=== PATIENT | male | born 1945 | race Caucasian/White ===

== ENCOUNTER 2017-11-02 09:00 | Outpatient (RCR) | payer MEDICARE, SELFPAY ==
--- NOTE | 2017-10-25 17:22 | HP.PTEVAL_ITS ---
Patient's Visit Information MITZI CLIFFORD is a 71 year old M referred to Physical Therapy by Phuong Tena MD with a diagnosis of Lumbosacaral spondylosis with radiculopathy. Date of Evaluation: 10/23/17 Physical Therapist: Shashank Prince - Visit Plan Frequency: 2x /Week Duration: 4 Weeks Plan: Start with neutral spine core strengtheing, light flexion exercises, postural awarness education, lifting/body mechanics, HS stretching and may use modalities to reduce symptoms. - Subjective Subjective: Pt is here today for his initial evaluation with diagnosis of lumbosacaral spondylosis with radiculopathy down his RLE. Pt. is a plesant 71 y.o. male who reports having a history of LBP for 10+ years, but would usually go away with rest and stretching. This time he bent over and lifted a heavy pumpkin and a large bin that was heavy resulting in radiating low back pain. Pt. reports having on and off radiding low back pain to the level of his lateral calf and ankle, not to his toes as of yet. He reports having increased pain with static standing, but also have pain with sitting for to long. He has relief with walking. He has no pain down his R leg. Pt. denies LE weakness, N/T and no changes in B/B. 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 He reports use of ice with decent relief. Pt. is scheduled to get an MRI next week. He reports light walking for his activity, but no recreational strengthening. He is hopeful to increase strength of his core, decrease pain in his back and increase overall tolerance to functional/recreational mobility. - Pain R hip Pain Intensity (Out of 10): 2 Pain Intensity Range: 1, 6 RLE Pain Intensity (Out of 10): 2 Pain Intensity Range: 1, 6 Lumbar spine Pain Intensity (Out of 10): 1 Pain Intensity Range: 1, 5 - Objective POSTURE: Pt. is over wt. Pt. has normal ARIANNA in stance. He has a anterior pelvic tilt in stance, with slight flexed posture. Pt. has rounded shoulders with FH positioning. PALPATION: Pt. has tenderness to spring testing of L3-S1 and increased pain with palpation to bilateral erector spinea. Pt. has no pain with palpation of bilateral hips or distal LEs. NEUROLOGICAL: Pt. has normal sensation to light and sharp touch of bilateral LEs. Pt. has 2+ achilles and patellar DTR bilaterally. Pt. is able to rise on heels and toes, but did show slight increased anterior tib weakness on R side. Normal G/S strength bilaterally. ROM: LUMBAR SPINE: flexion min loss mild increase NW, ext min loss NE, SB R min loss mild increase NW, SB L min/nil loss NE; rotation nil loss bilat mild increase NW bilaterally. Pt. has tight HS bilaterally 60deg/ea. Pt. has normal hip ROM, normal ER and IR without increase in symptoms. MMT: RLE - ankle 5/5 throughout, except 4+/5 DF; knee- 5/5 throughout; hip- flexion 4/5, abd 4/5, ext 4/5. LLE- ankle 5/5 throughout; knee- 5/5 throughout; hip- flexion 4+/5, abd 4/5, ext 4+/5. Core strength- poor+. GAIT: Pt. has normal step length bilaterally. Pt. has slight fwrd flexion with gait of trunk. Pt. has slight lateral hip sway, but no contralateral hip drop. STAIRS: PT. is able to negotiate with 2 HR (light use) without increase in symptoms. Pt. does have slight functional weakness with RLE controlled lowering. - Special Tests L/S Slump test left side: Negative L/S Slump test right side: Positive L/S Left Straight Leg Raise: Negative L/S Right Straight Leg Raise: Negative Lumbar Standing: Flexion - Mechanical Response: No effect Lumbar Standing: Flexion - Symptoms During Testing: Increases Lumbar Standing: Flexion - Symptoms After Testing: No worse Lumbar Standing: Extension - Mechanical Response: No effect Lumbar Standing: Extension - Symptoms During Testing: No effect Lumbar Standing: Extension - Symptoms After Testing: No effect Lumbar Standing: Right Side Glides - Mechanical Response: No effect Lumbar Standing: Right Side [place] - Symptoms During Testing: No effect Lumbar Standing: Right Side [place] - Symptoms After Testing: No effect Lumbar Standing: Left Side [place] - Mechanical Response: No effect Lumbar Standing: Left Side [place] - Symptoms During Testing: No effect Lumbar Standing: Left Side [place] - Symptoms After Testing: No effect Lumbar Lying: Flexion - Mechanical Response: No effect Lumbar Lying: Flexion - Symptoms During Testing: Decreases Lumbar Lying: Flexion - Symptoms After Testing: Better Lumbar Lying: Extension - Mechanical Response: No effect Lumbar Lying: Extension - Symptoms During Testing: Increases Lumbar Lying: Extension - Symptoms After Testing: Peripheralized Lumbar Static: Slouched Sit - Mechanical Response: No effect Lumbar Static: Slouched Sit - Symptoms During Testing: No effect Lumbar Static: Slouched Sit - Symptoms After Testing: No effect Lumbar Static: Sitting Erect - Mechanical Response: No effect Lumbar Static: Sitting Erect - Symptoms During Testing: No effect Lumbar Static: Sitting Erect - Symptoms After Testing: No effect Lumbar Static:Lying Prone in Extension - Mechanical Response: No effect Lumbar Static: Lying Prone in Extension - Sx During Testing: Increases Lumbar Static: Lying Prone in Extension - Sx After Testing: Peripheralized - Goals Goal 1:: Pt. to be I with HEP. Goal Time Frame: 4-6 Weeks Goal 2:: Pt. to have increased lumbar ROM by 25% in all directions without increase in pain. Goal Time Frame: 4-6 Weeks Goal 3:: Pt. to have increased core strength by 1/2 grade of all effected musculature to reduce stres applied to lumbar spine with all functional mobility. Goal Time Frame: 4-6 Weeks Goal 4:: Pt. to ambulate unlimited distances without increase in symptoms. Goal Time Frame: 4-6 Weeks Goal 5:: Pt. to sleep throughout the night without issues allowing for increased quality of life. Goal Time Frame: 4-6 Weeks - Rehabilitation Potential Physical Therapy Diagnosis: Pt. has signs and symptoms consistent with lumbar radiculopathy down his RLE He has dural signs, but not drastic changes as of yet. He. has signs suggesting spinal stenosis. He would benefit from PT to increase core strength, decreased pain, increase HS length and promote improved posture. Rehabilitation Potential: Fair - Anticipated Interventions Patient/Client Instruction: Educate patient on: Condition, Plan of Care, Risk Factors, Benefits of Fitness Program For the Purpose of:: To improve health and function, To foster healthy habits, To improve decision making, To facilitate caregiver knowledge, To improve self management, To prevent re-injury, To improve ability to perform tasks related to life management, To improve tolerance to ADL's Therapeutic Exercise to Include: Strength training, Power training, Body mechanics, Postural training, Flexibilty training, Passive ROM, Active ROM, Dynamic Lumbar Stabilization, Valentine Exercises For the Purpose of:: To decrease pain, To increase ROM, To improve nutrient delivery to tissue, To increase oxygenation perfusion, To improve muscle performance and motor function, To improve ability to perform ADL's, To increase tolerance to activity/condition/position, To improve health of tissue, To decrease soft tissue restriction, To increase flexibility/ROM Manual Therapy Techniques to Include: Mobilization, Passive ROM, Functional dry needling, Soft tissue mobilization For the Purpose of:: To decrease pain, To increase ROM, To improve nutrient delivery to tissue, To increase oxygenation perfusion, To improve muscle performance and motor function, To improve ability to perform ADL's Cryotherapy (ice pack, ice massage): Yes Ultrasound (thermal/non thermal): Yes For the Purpose of:: To decrease pain, To increase ROM Thank you for the opportunity to evaluate your patient. For Medicare and Medicare HMO plans, please review the plan of care and approve it. It will need to be FAXED BACK to us at [phone] for Medicare purposes. Please let me know if there are questions or concerns regarding this plan of care. Physician Signature: Date:
== END 2017-11-02 09:30 | disposition home or self-care (01) ==
LOC: PT 09:00
PROVIDERS: Family Provider Family Medicine; PCP Family Medicine; Visit Provider Orthopaedic Surgery Orthopaedic Surgery of the Spine
DX: M47.27 Other spondylosis with radiculopathy, lumbosacral region (principal)
CPT/HCPCS: 97110; 97162

== ENCOUNTER → 2019-04-03 16:51 | Outpatient (CLI) | payer MEDICARE, SELFPAY ==
[2019-04-03 17:50] LABS: Hemoglobin A1c 6.7 % (4.2-6.3)
== END ==
PROVIDERS: Family Provider Family Medicine; PCP Family Medicine; Referring Provider Orthopaedic Surgery Orthopaedic Surgery of the Spine; Visit Provider Orthopaedic Surgery Orthopaedic Surgery of the Spine
DX: E11.9 Type 2 diabetes mellitus without complications (principal); E55.9 Vitamin D deficiency, unspecified
CPT/HCPCS: 36415; 82040; 82306; 83036

== ENCOUNTER → 2021-08-26 13:45 | Outpatient (CLI) | payer MEDICARE, SELFPAY ==
[2021-08-26 14:43] LABS: Absolute Lymphocyte Count 1.55 X10^3/uL (0.83-4.51); Basophil# 0.03 X10^3/uL; Basophil% 0.5 % (0-1); Eosinophil# 0.06 X10^3/uL; Hemoglobin 14.7 g/dL (13.0-16.5); Lymphocyte # 1.55 X10^3/ul (0.83-4.51); Lymphocyte % 24.7 % (19-41); Mean Corp Hgb Conc 33.4 g/dL (32-36); Mean Corpuscular Hgb 29.8 pg (27.0-32.0); Mean Corpuscular Volume 89.1 fL (80-94); Mean Platelet Vol. 10.6 fl (6.2-12.0); Monocyte# 0.58 X10^3/uL; Monocyte% 9.3 % (0-10); NRBC Flagged by Analyzer 0 % (0-5); Neutrophil # 4.04 X10^3/uL (2.7-7.7); Neutrophil % 64.3 % (47-70); Platelet Count 282 K/mm3 (150-450); RBC Distribution Width CV 13.7 % (11.6-14.6); RBC Distribution Width SD 44.2 fl (35.1-43.9); Red Blood Count 4.94 M/mm3 (4.6-6.2); White Blood Count 6.3 K/mm3 (4.4-11.0)
[2021-08-26 15:12] LABS: AST(SGOT) 30 U/L (15-37); Alanine Aminotransfer ALT/SGPT 31 U/L (16-61); Albumin, Serum 3.8 g/dL (3.2-5.0); Alkaline Phosphatase 83 U/L (45-117); Anion Gap 8 (5-15); BUN 11 mg/dL (7-18); BUN/Creat Ratio 9.9 RATIO (10-20); Calcium,Total 9.8 mg/dL (8.5-10.1); Chloride 103 mmol/L (98-107); Creatinine, Serum 1.11 mg/dL (0.70-1.30); EST Glomerular Filtration Rate 69 mL/min (>60); Est Glom Filt Rate - Afr Amer 83 mL/min (>60); Globulin 3.9 g/dL (2.2-4.2); Glucose 168 mg/dL (74-106); PSA,Total - Annual Screen 3.32 ng/mL (0.00-4.00); Potassium 3.7 mmol/L (3.5-5.1); Protein, Total 7.7 g/dL (6.4-8.2); Sodium Level 137 mmol/L (136-145)
== END ==
PROVIDERS: PCP Family Medicine; Referring Provider Family Medicine; Visit Provider Family Medicine
DX: R35.0 Frequency of micturition (principal); R39.15 Urgency of urination; R97.20 Elevated prostate specific antigen [PSA]
CPT/HCPCS: 36415; 80053; 84153; 85025; 87086; G0103

== ENCOUNTER 2023-12-16 09:51 | Emergency (ER) | payer MEDICARE, SELFPAY ==
[2023-12-16 09:52] VITALS: BP 183/121; PULSE 102; RESP 16; TEMP 35.6; O2SAT 100
--- NOTE | 2023-12-16 10:39 | ED.VIS.BACK ---
HPI History of Present Illness Chief Complaint: Back Informant: patient and spouse/S.O. Narrative Narrative: Patient presents with back pain and sciatica. Patient has a long history of back pain and sciatica. He had some preprocedure was done about 10 years ago that include what sounds like a radiofrequency ablation. He is doing well until about 10 weeks ago. His fell after knee surgery and he rushed to pick her up and exacerbated it. He has had some pain in the left buttock going down the lateral aspect of the left leg to above the ankle ever since. He states the last 3 or 4 weeks he is occasionally weak. He states its hardest when he gets up from a chair or walks up steps but he is able to do it all. In fact he has been walking here quite well. But he states the pain is just bothering him. He did see Dr. Ulloa. He saw him about a week ago. He had an MRI yesterday at the office but we do not have the results. I went on to [facility] and I am unable to find any results. Patient states that there is no bowel or bladder dysfunction. No fevers. No impact or fall trauma. Patient is here because he would just like some relief of pain. He states he takes Tylenol and that is it. He used to be on gabapentin but they recently moved and he has not been on that for 3 or 4 months. But he was still doing well. Past medical history includes diabetes And high blood pressure. No known allergies Includes metformin, glipizide. PFSH PFSH Home Medications hydrocodone-acetaminophen 5-325mg 5mg-325mg 1 tab PO Q6H PRN PRN Pain 3 days #12 TABLETS 12/16/23 [Rx Last Taken Unknown] prednisone 20 mg tablet 60 mg (3 x 20 mg) PO DAILY #15 TABLETS 12/16/23 [Rx Last Taken Unknown] Allergy/AdvReac Type Severity Reaction Status Date / Time No Known Allergies Allergy Verified 12/16/23 09:53 Social History Smoking Status: Unknown if ever smoked ROS ROS ED ROS Narrative A complete review of systems was performed and is negative except as documented in the history of present illness. Some specific details below. Constitutional: No recent fevers or chills. No rigors. Patient has not generally felt ill. ENT: No sinus pressure or pain. No dental pain. CV: No chest pain, pressure or aching. No palpitations or irregular beats. Patient has not been presyncopal or syncopal. Respiratory: No trouble breathing. No cough. No wheezing. No sputum production. No pain with breathing. GI: No abdominal pain. No nausea vomiting diarrhea. No blood in stool. No loss of bowel control. No history of AAA. : No frequency dysuria or hematuria. No incontinence or urinary retention. Musculoskeletal: No recent trauma. No swelling. Please see history of present illness. Skin: No rash. No diaphoresis. No vesicles. Neuro: No numbness. But he does feel just a little weaker than normal getting out of a chair and walking up steps. But it is not limiting his ability to do these things. No pain radiating down leg past the knee. No weakness of ambulation. No sensory changes in the extremities. Please see history of present illness also. Endocrine: No polyuria or polydipsia. EXAM Physical Exam Narrative Exam Narrative: CONSTITUTIONAL: Patient is nontoxic in appearance. The patient looks comfortable. Work of breathing looks normal. HEENT: No notable trauma. Mucous membranes moist. No sinus tenderness. No sign of dental infection. EYES: No conjunctival injection. No pallor. NECK: No meningismus. No JVD. CARDIOVASCULAR: Regular rate. Regular rhythm. No notable murmur. No JVD. RESPIRATORY: No respiratory distress. Breathing is unlabored. No wheezes. GASTROINTESTINAL: Not distended. Bowel sounds are normal. No tenderness. No guarding. No rebound. No palpable mass. No bruit. GENITOURINARY: No tenderness over the bladder. No CVA tenderness. MUSCULOSKELETAL: Atraumatic. No peripheral edema. No cord. No tenderness along the deep venous system. No asymmetry. Distal pulses are intact. Patient actually does not have any posterior back spine or paraspinal pain. All his pain starts in the left sciatic/buttock notch region. He has a little tenderness there. This does cause radiation down his leg. NEUROLOGICAL: Patient is alert and oriented. No focal deficit noted. Patient can stand on toes and heels and do squats. He has gotten up and walk to the bathroom without difficulty. He can get on and off the toilet by himself. Patellar reflex is quite low at about 1+ but it is equal both sides. Achilles reflex 0?1+ bilaterally. But again it is equal. SKIN: No noted rashes. No diaphoresis. No vesicles noted. No notable pallor. PSYCHIATRIC: Patient is calm. Mood is appropriate. Const Vital Signs: 12/16/23 09:52 Temperature 96.0 F L Temperature Source Temporal Pulse Rate 102 H Respiratory Rate 16 Blood Pressure 183/121 H Blood Pressure Mean 141 Pulse Ox 100 Oxygen Delivery Method Room Air MDM MDM MDM Narrative Medical decision making narrative: Patient actually has no weakness on exam. He does have radiation down his leg past the knee. His and he states that he has gotten excellent help with prednisone before. They state his diabetes is well-controlled and he has not had problems with it from prednisone of any significance. I also did an online prescribing report he did used to be on gabapentin. He was on actually relatively low dose. He is also had a couple prescriptions for hydrocodone. I will write for some hydrocodone as well as the course of steroids and he will follow-up with his spine surgeon. We discussed reasons to return. Discharge Plan Triage Chief Complaint: Back ED Provider: Jayme Recinos Dx/Rx/DC Orders Clinical Impression: Left sided sciatica Instructions: ED Back Pain (Acute or Chronic) Prescriptions: New hydrocodone-acetaminophen [hydrocodone-acetaminophen] 5-325 mg tablet 1 tab PO Q6H PRN PRN (Reason: Pain) 3 Days Qty: 12 0RF prednisone 20 mg tablet 60 mg PO DAILY Qty: 15 0RF Primary Care Provider: Deena Barcenas Referrals: Sánchez Ulloa DO [Med Staff - Active Staff] - As soon as possible Deena Barcenas MD [Primary Care Provider] - As Needed Disposition Disposition: Home, Self Care
[2023-12-16] MEDS: HYDROcodone Bitartrate/Apap 5/325 Tablet PO (10:58)
--- OUTSIDE RECORDS SUMMARY | 2023-12-16 11:01 | XMS RPT_ITS | CCD ---
Author Name Unknown Address [address] [place] [address] Organization [facility] Care Team Providers Care Lost Charge Card Clerk Name Role Phone REFERRING, PHY WO ID Unavailable Unavailable STEFAN ARCHULETA Unavailable Unavailable REFERRING, PHY WO ID Unavailable Unavailable Emery ZHOU Unavailable Unavailable Bebeto Jacobsen MD Primary Care Provider Bebeto JACOBSEN Primary Care Unavailable JOSE MADERA Admitting Unavailable ADALGISA RANGEL Referring Unavailable GEMA ALDRIDGE Attending Unavailable LEEANN JACOBSEN MD Admitting Unavailable LEEANN JACOBSEN MD Primary Care Unavailable LEEANN JACOBSEN MD Consulting Unavailable LEEANN JACOBSEN MD Attending Unavailable PROVIDER, UNKNOWN Consulting Unavailable PROVIDER, UNKNOWN Consulting Unavailable PROVIDER, UNKNOWN Consulting Unavailable LEEANN JACOBSEN MD Primary Care Unavailable LEEANN JACOBSEN MD Consulting Unavailable LEEANN JACOBSEN MD Attending Unavailable LEEANN JACOBSEN MD Admitting Unavailable PROVIDER, UNKNOWN Consulting Unavailable PROVIDER, UNKNOWN Consulting Unavailable PROVIDER, UNKNOWN Consulting Unavailable LEEANN JACOBSEN MD Primary Care Unavailable LEEANN JACOBSEN MD Consulting Unavailable LEEANN JACOBSEN MD Attending Unavailable LEEANN JACOBSEN MD Admitting Unavailable PROVIDER, UNKNOWN Consulting Unavailable PROVIDER, UNKNOWN Consulting Unavailable PROVIDER, UNKNOWN Consulting Unavailable LEEANN JACOBSEN MD Primary Care Unavailable LEEANN JACOBSEN MD Consulting Unavailable LEEANN JACOBSEN MD Attending Unavailable LEEANN JACOBSEN MD Admitting Unavailable PROVIDER, UNKNOWN Consulting Unavailable PROVIDER, UNKNOWN Consulting Unavailable PROVIDER, UNKNOWN Consulting Unavailable Eloina Jacobsen MD Primary Care Provider Eloina Jacobsen MD Primary Care Provider Letha Pelletier MD Unavailable PABLO-FARIAS, LETHA Armas Attending Unava ilable [facility], ELOINA Primary Care Unavailable PABLO-FARIAS, LETHA Armas Attending Unava ilable [facility], ELOINA Primary Care Unavailable PABLO-FARIAS, LETHA Armas Attending Unava ilable [facility], ELOINA Primary Care Unavailable PABLO-FARIAS, LETHA Attending Unavail able [facility], ELOINA GUY Primary Care Unavailable PABLO-FARIAS, LETHA Admitting Unavail able SOHAIL VINES MD Consulting Unavailable SOHAIL VINES MD Consulting Unavailable PABLO-FARIAS, LETHA Consulting Unavail able PABLO-FARIAS, LETHA Consulting Unavail able ELOINA JACOBSEN Consulting Unavailable ELOINA JACOBSEN Consulting Unavailable HETAL VINES~[id number], HETAL Miles Attendjohn g Unavailable HETAL VIENS~[id number], HETAL Miles Admittjohn g Unavailable NONE NONE, NONE~[id number] NONE Consulting Unavailable ANN-MARIE, ELOINA BRADSHAW Primary Care Unavailable NONE, NONE Consulting Unavailable FABY FONG MD Consulting UnavailFABY Hsu MD Consulting Unavailshaun e ELOINA JACOBSEN Admitting Unavailable ELOINA JACOBSEN Attending Unavailable ELOINA JACOBSEN Consulting Unavailable ELOINA JACOBSEN Primary Care Unavailable ELOINA JACOBSEN Consulting Unavailable ELOINA JACOBSEN Primary Care Unavailable LATOYA NORRIS APRN Admitting Nancy vailable HEFFELGREGGGER LATOYA SHELTON Attending Nancy vailable OFELIALLATOYA MONTANA APRN Consulting Nancy vailable ELOINA JACOBSEN Consulting Unavailable ELOINA VELA MD Attending Unavailshaun VELA MD, ELOINA Smith Consulting UnavailELOINA Vasquez MD Admitting Unavailshaun e ELOINA JACOBSEN Primary Care Unavailable ANN-MARIE, ELOINA BRADSHAW Consulting Unavailable ELOINA JACOBSEN Consulting Unavailable ELOINA JACOBSEN Primary Care Unavailable HENNY VINES~[id number], HENNY Dixon Attending Unavailable HENNY VINES~[id number], HENNY Dixon Admitting Unavailable ELOINA JACOBSEN Consulting Unavailable ELOINA JACOBSEN Consulting Unavailable HENNY VINES~[id number], HENNY Dixon Attending Unavailable HENNY VINES~[id number], HENNY Dixon Admitting Unavailable ELOINA JACOBSEN Primary Care Unavailable ANN-MARIE, ELOINA BRADSHAW Consulting Unavailable HENNY VINES, DAYLIN Dixon Consulting Unavailable HENNY VINES, DAYLIN Dixon Consulting Unavailable DANE VINES, ELOINA Smith Attending Unavailshaun VELA MD, ELOINA Smith Consulting Unavailshaun VELA MD, ELOINA Smith Admitting UnavailELOINA Ochoa Primary Care Unavailable ANN-MARIE, ELOINA BRADSHAW Consulting Unavailable ELOINA JACOBSEN Primary Care Unavailable HEFFELFINGER FILM INSPECTOR~[id number] , JR Dao Attending Unavailable HEFFELFINGER FILM INSPECTOR~[id number] , JR Dao Admitting Unavailable HEFFELFINGER LATOYA SHELTON Consulting Nancy vailable HEFFELGREGGGER FILM INSPECTORLATOYA Consulting Nancy vailable ANN-MARIE, ELOINA BRADSHAW Consulting Unavailable ANN-MARIE, ELOINA BRADSHAW Consulting Unavailable ELOINA JACOBSEN Primary Care Unavailable HEFFELFINGER FILM INSPECTOR~[id number] , JR Dao Attending Unavailable HEFFELFINGER FILM INSPECTOR~[id number] , JR Dao Admitting Unavailable HEFFELFINGER FILM INSPECTORLATOYA Consulting Nancy vailable HEFFELFINGER FILM INSPECTORLATOYA Consulting Nancy vailable ANN-MARIE, ELOINA BRADSHAW Consulting Unavailable ANN-MARIE, ELOINA BRADSHAW Consulting Unavailable Medications Current Medications Medication Drug Class(es) Dates Sig (Normalized) Sig (Original) atorvastatin 10 mg oral tablet (3 sources) HMG-CoA Reductase Inhibitor Start: 12-08-2022 take 1 tablet by mouth once daily at bedtime atorvastatin (Lipitor) 10 mg tablet TAKE 1 TABLET BY MOUTH EVERYDAY AT BEDTIME 0 12/08/2022 Active Completed/Discontinued Medications Medication Drug Class(es) Dates Sig (Normalized) Sig (Original) acetaminophen 325 mg oral tablet (3 sources) Start: 06-30-2022 End: 07-01-2022 take 1 tablet by mouth every six hours as needed acetaminophen (TYLENOL) tablet 650 mg Problems Active Problems Problem Classification Problem Date Documented Date Episodic/Chronic Cardiac dysrhythmias (4 sources) Supraventricular tachycardia; Translations: [Ventricular premature depolarization] Onset: 01-10-2023 Chronic Diabetes mellitus with complications (3 sources) Type 2 diabetes mellitus with diabetic neuropathy, unspecified; Translations: [TYPE 2 DM W/DIABETIC NEUROPATHY UNS] Onset: 07-26-2023 Chronic Diabetes mellitus without complication (2 sources) Type 2 diabetes mellitus without complications; Translations: [TYPE 2 DIABETES MELLITUS WITHOUT COMPLICATIONS] Onset: 05-05-2017 Chronic Disorders of lipid metabolism (3 sources) Hyperlipidemia, unspecified; Translations: [HYPERLIPIDEMIA UNSPECIFIED] Onset: 01-19-2023 Chronic Heart valve disorders (2 sources) Other rheumatic mitral valve diseases; Translations: [Rheumatic tricuspid insufficiency] Onset: 11-14-2022 Chronic Osteoarthritis (2 sources) Primary osteoarthritis, left shoulder; Translations: [Primary osteoarthritis, right shoulder] Onset: 06-05-2023 Chronic Other connective tissue disease (2 sources) Biceps tendinitis; Translations: [Bicipital tendinitis, right shoulder] Episodic Residual codes; unclassified (3 sources) Primary central sleep apnea; Translations: [PRIMARY CENTRAL SLEEP APNEA] Onset: 06-06-2023 Chronic Residual codes; unclassified (1 source) Obstructive sleep apnea (adult) (pediatric); Translations: [OBSTRUCTIVE SLEEP APNEA] Onset: 06-09-2023 Chronic Residual codes; unclassified (1 source) Hypersomnia, unspecified; Translations: [HYPERSOMNIA UNSPECIFIED] Onset: 06-09-2023 Chronic Residual codes; unclassified (1 source) Idiopathic sleep related nonobstructive alveolar hypoventilation; Translations: [IDIO SLEEP NONOBST ALVEOL HYPOVENT] Onset: 01-04-2023 Chronic Residual codes; unclassified (2 sources) Altered mental status; Translations: [Altered mental status, unspecified] Onset: 06-30-2022 Episodic Transient cerebral ischemia (1 source) Transient cerebral ischemia; Translations: [Transient cerebral ischemic attack, unspecified] Chronic Past or Other Problems Problem Classification Problem Date Documented Date Episodic/Chronic Epilepsy; convulsions (3 sources) Unspecified convulsions; Translations: [UNSPECIFIED CONVULSIONS] Onset: 3 Episodic Genitourinary symptoms and ill-defined conditions (2 sources) Urgency of urination; Translations: [URGENCY OF URINATION] Onset: 7 Episodic Neoplasms of unspecified nature or uncertain behavior (3 sources) Neoplasm of uncertain behavior of skin; Translations: [NEOPLASM UNCERTAIN BEHAVIOR OF SKIN] Onset: 3 Episodic Other connective tissue disease (2 sources) Bicipital tendinitis, right shoulder; Translations: [BICIPITAL TENDINITIS RIGHT SHOULDER] Onset: 3 Episodic Other lower respiratory disease (1 source) Snoring; Translations: [SNORING] Onset: 3 Episodic Other screening for suspected conditions (not mental disorders or infectious disease) (1 source) Abnormal electroencephalogram [EEG]; Translations: [ABNORMAL ELECTROENCEPHALOGRAM] Onset: 3 Episodic Residual codes; unclassified (1 source) Insomnia, unspecified; Translations: [INSOMNIA UNSPECIFIED] Onset: 3 Episodic Syncope (5 sources) Syncope; Translations: [Syncope and collapse] Onset: 2 Episodic Results Test Name Value Interpretation Reference Range Facil ity Vital Signs Date Time Vital Sign Value Performing Clinician Faci lity 08-31-2023 13:57-0400 Body mass index (BMI) [Ratio] 28.81 kg/m2 Letha Pelletier MD Work Phone: [facility] 08-31-2023 13:57-0400 Body temperature 99.5 [degF] Letha Pelletier MD Work Phone: [facility] 08-31-2023 13:57-0400 Body weight 100.43 kg Letha Pelletier MD Work Phone: [facility] 08-31-2023 13:57-0400 Diastolic blood pressure 80 mm[Hg] Letha Pelletier MD Work Phone: [facility] 08-31-2023 13:57-0400 Heart rate 82 /min Letha Pelletier MD Work Phone: [facility] 08-31-2023 13:57-0400 SaO2% (BldA) [Mass fraction] 96 % Letha Pelletier MD Work Phone: [facility] 08-31-2023 13:57-0400 Systolic blood pressure 144 mm[Hg] Letha Pelletier MD Work Phone: [facility] 12-29-2022 14:38-0500 Body height 186.7 cm Letha Pelletier MD Work Phone: [facility] 12-29-2022 14:38-0500 Body mass index (BMI) [Ratio] 28.68 kg/m2 Letha Pelletier MD Work Phone: [facility] 12-29-2022 14:38-0500 Body temperature 96.91 [degF] Letha Pelletier MD Work Phone: [facility] 12-29-2022 14:38-0500 Body weight 99.97 kg Letha Pelletier MD Work Phone: [facility] 12-29-2022 14:38-0500 Diastolic blood pressure 78 mm[Hg] Letha Pelletier MD Work Phone: [facility] 12-29-2022 14:38-0500 Heart rate 84 /min Letha Pelletier MD Work Phone: [facility] 12-29-2022 14:38-0500 Systolic blood pressure 120 mm[Hg] Letha Pelletier MD Work Phone: [facility] 07-01-2022 15:44-0400 Body temperature 98.1 [degF] Angus Birmingham MD Work Phone: [facility] 07-01-2022 15:44-0400 Diastolic blood pressure 71 mm[Hg] Angus Birmingham MD Work Phone: [facility] 07-01-2022 15:44-0400 Heart rate 104 /min Angus Birmingham MD Work Phone: [facility] 07-01-2022 15:44-0400 Respiratory rate 18 /min Angus Birmingham MD Work Phone: [facility] 07-01-2022 15:44-0400 SaO2% (BldA) [Mass fraction] 96 % Angus Birmingham MD Work Phone: [facility] 07-01-2022 15:44-0400 Systolic blood pressure 125 mm[Hg] Angus Birmingham MD Work Phone: [facility] 06-30-2022 22:43-0400 Body height 186.7 cm Angus Birmingham MD Work Phone: [facility] 06-30-2022 22:43-0400 Body mass index (BMI) [Ratio] 26.68 kg/m2 Angus Birmingham MD Work Phone: [facility] 06-30-2022 22:43-0400 Body weight 92.99 kg Angus Birmingham MD Work Phone: [facility] Encounters Encounter Date Encounter Type Care Provider Facility Start: 08-31-2023 End: 08-31-2023 ambulatory LETHA PELLETIER [facility] Start: 08-31-2023 End: 08-31-2023 Office outpatient visit 15 minutes Letha Pelletier MD Work Phone: [facility] Rhe[facility]ology Procedures Date Procedure Procedure Detail Performing Clinician Start: 08-31-2023 Arthrocentesis aspir&/inj interm jt/burs w/o us Letha Pelletier MD Work Phone: Start: 07-01-2022 Electroencephalogram w/rec awake&drowsy Mere Oswald MD Start: 07-01-2022 TTE w or wo fol wcon,Doppler [place] satish FILM INSPECTOR-FOIL OPERATOR Work Phone: Start: 08-26-2022 Glucose measurement, blood Roshan lopez MD Work Phone: Start: 07-01-2022 Mri brain brain stem w/o contrast material Mere Oswald MD Start: 07-01-2022 Hemoglobin glycosylated a1c Mere rodgers MD Start: 07-01-2022 Lipid panel [place] [facility] [place] FILM INSPECTOR-FOIL OPERATOR Work Phone: Start: 07-01-2022 Lipid 1996 panel - Serum or Plasma Angus Birmingham MD Work Phone: Start: 06-30-2022 CONTINUOUS CARDIAC MONITORING STRIP Other Other Start: 06-30-2022 Drug tst prsmv instrmnt chem analyzers pr date Lucy Waggoner MD Work Phone: Start: 06-30-2022 EXTRA MICRO Lucy Waggoner MD Work Phone: Start: 06-30-2022 Urnls dip stick/tablet rgnt auto w/o microscopy Lucy Waggoner MD Work Phone: Start: 06-30-2022 End: 06-30-2022 Ct angiography head w/contrast/noncontrast Lucy Waggoner MD Work Phone: Start: 06-30-2022 CBC AND ELECTRONIC DIFF Lucy patel MD Work Phone: Start: 06-30-2022 Complete blood count with white cell differential, automated Lucy Waggoner MD Work Phone: Start: 06-30-2022 GOLD TOP TUBE Lucy Waggoner MD Work Phone: Start: 06-30-2022 Hemoglobin glycosylated a1c [place] [employer]o ro FILM INSPECTOR-FOIL OPERATOR Work Phone: Start: 06-30-2022 LAVENDER TOP TUBE Lucy Waggoner MD Work Phone: Start: 06-30-2022 Lipid panel Angus Birmingham MD Work Phone: Start: 06-30-2022 LT BLUE TOP TUBE Lucy Waggoner MD Work Phone: Start: 06-30-2022 MINT GREEN TOP TUBE Lucy Waggoner MD Work Phone: Start: 06-30-2022 RAINBOW DRAW Lucy Waggoner MD Work Phone: Start: 06-30-2022 Glucose measurement, blood Angus awad MD Work Phone: Plan of Treatment Date Care Activity Detail Author Start: 07-01-2027 Fasting lipid profile LIPID SCREENING [facility] Start: 07-01-2027 Lipid panel Lipid Panel [facility] Start: 11-13-2023 End: 11-13-2023 Patient encounter procedure 11/13/2023 10:30 AM EST Office Visit [facility] [address] [place] [id number] [place], FILM INSPECTOR-FOIL OPERATOR [address] [place] [address] [id number] [facility] Start: 07-07-2023 Influenza vaccination Influenza Vaccine (#1) [facility] Start: 07-01-2023 Diabetes mellitus screening Diabetes Screening [facility] Start: 06-30-2023 Potassium [Moles/volume] in Serum or Plasma POTASSIUM [facility] Start: 03-28-2023 End: 03-28-2023 Patient encounter procedure 03/28/2023 Office Visit Rheumatology Letha Pelletier MD [facility] [address] [id number] [facility] Start: 07-07-2022 Influenza vaccination INFLUENZA VACCINE (#1) [facility] Start: 2011 Abdominal aortic aneurysm screening ABDOMINAL AORTIC ANEURYSM HIGH RISK SCREEN [facility] Start: 2011 Pneumococcal vaccination PNEUMOCOCCAL VACCINE SERIES (1 - PCV) [facility] Start: 2011 Pneumococcal Vaccine: 65+ Years (1 - PCV) Pneumococcal Vaccine: 65+ Years (1 - PCV) [facility] Start: 2006 Respiratory Syncytial Virus (RSV) Immunization Age 60+ Years (1 - 1-dose 60+ series) Respiratory Syncytial Virus (RSV) Immunization Age 60+ Years (1 - 1-dose 60+ series) [facility] Start: 1996 Prostate specific antigen measurement PROSTATE CANCER SCREENING DISCUSSION [facility] Start: 1996 Zoster vaccine hzv live for subcutaneous use ZOSTER (SHINGLES) VACCINE (1 of 2) [facility] Start: 1996 Zoster Vaccines (1 of 2) Zoster Vaccines (1 of 2) [facility] Start: 1991 Colonoscopy COLORECTAL CANCER SCREENING DISCUSSION [facility] Start: 1965 DTaP/Tdap/Td Vaccines (1 - Tdap) DTaP/Tdap/Td Vaccines (1 - Tdap) [facility] Start: 1965 Third diphtheria, tetanus and acellular pertussis (DTaP) vaccination TDAP (ADULT) [facility] Start: 1964 Tetanus vaccination TETANUS [facility] Start: 1958 Annual PHQ-2/9 Screening Annual PHQ-2/9 Screening [facility] Start: 06-25-1946 COVID-19 Vaccine (#1) COVID-19 Vaccine (#1) [facility] Start: 1946 Hepatitis B Vaccines (1 of 3 - 3-dose series) Hepatitis B Vaccines (1 of 3 - 3-dose series) [facility] Start: 1946 Hepatitis C antibody, confirmatory test HEPATITIS C VIRUS SCREENING [facility] Start: 1946 Hepatitis C screening Hepatitis C Screening [facility] Start: 1946 Lipid panel Lipid Panel [facility] End: 06-30-2022 Standard ECG ECG ECG STAT One Time for 1 Occurrences starting 06/30/2022 until 06/30/2022 [facility] Immunizations Immunization Date Immunization Notes Care Provider Fa cility 11-05-2021 influenza virus vaccine, unspecified formulation Angus Birmingham MD Work Phone: [facility] Payers Date Payer Category Payer Medicare [id number] 2021 Medicare [id number] 2014 Unknown [id number] 1945 Unknown [id number] 2.16. [id number] 1946 Unknown [id number] 2.16.84 [id number] 1946 Unknown [id number] 2.16.84 [id number] 1946 Unknown [id number] 2.16.84 [id number] 1946 Unknown [id number] 2.16.84 [id number] 1946 Unknown [id number] 2.16.8 [id number] 1946 Unknown [id number] 2.16.8 [id number] 1946 Unknown [id number] 2.16.8 [id number] 1946 Unknown [id number] 2.16.8 [id number] 1946 Unknown [id number] 2.16.8 [id number] 1946 Unknown [id number] 2.16.8 [id number] 1946 Unknown [id number] 2.16.8 [id number] 1946 Unknown [id number] 2.16.8 [id number] 1946 Unknown [id number] 2.16.8 [id number] 1946 Unknown [id number] 2.16.8 [id number] Medicare [id number] Medicare [id number] Social History Date Type Detail Facility Tobacco smoking stat [facility] Tobacco smoking consumption unknown [facility] Start: 1945 Sex Assigned At Not on file [facility] Start: 12-29-2022 Tobacco smoking stat [facility] Never smoked tobacco [facility] Start: 12-29-2022 Tobacco use and exposure Smokeless tobacco non-user [facility] Start: 12-29-2022 End: 08-31-2023 Alcohol intake Ex-drinker (finding) [facility] Start: 12-19-2022 End: 12-29-2022 Exposure to SARS-CoV-2 (event) Not sure [facility] Start: 08-31-2023 History of Social function [facility] Start: 08-31-2023 Tobacco use panel [facility] Clinical Notes 06-30-2022 to 08-31-2023 Letha Pelletier MD - 08/31/2023 2:20 PM Elvis Ospina RN - 08/31/2023 2:20 PM Ger Pelletier MD - 12/29/2022 3:00 PM EST(Routine) Note Date & Type Note Facility 08-31-2023 History of Present illness Narrative Associated Order(s): Joint Aspiration/Injection I have had the pleasure of seeing Mr. Aron Clifford in follow-up at [facility] today. As you know we see him for the following medical diagnoses: 1. Biceps tendinitis of right upper extremity No chief complaint on file. History of Present Illness: Mr. Clifford complains of right should pain. History obtained initial evaluation: It started around October.Left shoulder is doing ok. Worse with activity. He takes tylenol 2 x 500 mg tid which helps. Also using a heating pad . Meloxicam started 12/29. Patient also on gabapentin 300 mg po bid. He is also taking tylenol, which helps. Steroid injection of the right shoulder with methylprednisolone 80 mg posterior approach done 05/28. He is having pain on the right side of the neck and right shoulder, bicipital area. Past Medical History: He has a past medical history of Bursitis, History of dysuria, Osteoarthrosis, Radicular syndrome, Sciatica, and Spinal stenosis. Current Outpatient Medications on File Prior to Visit Medication Sig Dispense Refill acetaminophen (Tylenol) 325 mg tablet Take by mouth every 8 (eight) hours if needed for mild pain. atorvastatin (Lipitor) 10 mg tablet TAKE 1 TABLET BY MOUTH EVERYDAY AT BEDTIME busPIRone (Buspar) 15 mg tablet Take 1 tablet (15 mg total) by mouth 2 (two) times a day. dilTIAZem CD (Cardizem CD) 240 mg 24 hr capsule Take by mouth 1 (one) time each day. fluorouraciL (Efudex) 5 % cream Apply 1 Application topically 2 (two) times a day. gabapentin (Neurontin) 100 mg capsule TAKE 1 CAPSULE BY MOUTH THREE TIMES A DAY 90 capsule 1 glipiZIDE (Glucotrol) 5 mg tablet TAKE ONE TABLET BY MOUTH 30 MINUTES BEFORE breakfast AND 30 MINUTES BEFORE SUPPER hydroCHLOROthiazide (HYDRODiuril) 25 mg tablet Take 1 tablet (25 mg total) by mouth 1 (one) time each day. losartan (Cozaar) 100 mg tablet Take 1 tablet (100 mg total) by mouth 1 (one) time each day. meclizine (Antivert) 12.5 mg tablet TAKE 1-2 TABLETS EVERY 8 HOURS NEEDED FOR DIZZINESS meloxicam (Mobic) 15 mg tablet TAKE 1 TABLET (15 MG TOTAL) BY MOUTH EVERY DAY 30 tablet 1 metFORMIN (Glucophage) 1,000 mg tablet Take 1 tablet (1,000 mg total) by mouth 2 (two) times a day. tamsulosin (Flomax) 0.4 mg 24 hr capsule Take by mouth 1 (one) time each day. gabapentin (Neurontin) 300 mg capsule Take 1 capsule (300 mg total) by mouth twice a day. metoprolol succinate XL (Toprol XL) 25 mg 24 hr tablet nabumetone (Relafen) 500 mg tablet Take 1 tablet (500 mg total) by mouth 2 (two) times a day. No current facility-administered medications on file prior to visit. Past Surgical History: Procedure Laterality Date OTHER SURGICAL HISTORY skin cancer Family History Problem Relation Name Age of Onset Cancer Mother Cancer Father Alcohol Use Disorder Brother Accidental Brother Social History Tobacco Use Smoking status: Never Smokeless tobacco: Never Vaping Use Vaping Use: Never used Substance Use Topics Alcohol use: Not Currently Drug use: Never Review of Systems: As stated in HPI other yarbrough complete review of system is negative Review of Systems Constitutional: Negative. Negative for chills, fatigue and unexpected weight change. HENT: Negative. Negative for mouth sores, rhinorrhea, sinus pressure, sinus pain and trouble swallowing. Eyes: Negative. Respiratory: Negative for cough and shortness of breath. Cardiovascular: Negative for chest pain and palpitations. Gastrointestinal: Negative for blood in stool, constipation, diarrhea and nausea. Genitourinary: Negative for hematuria and urgency. Musculoskeletal: Positive for arthralgias. Negative for back pain, gait problem, joint swelling, myalgias, neck pain and neck stiffness. Skin: Negative. Negative for rash. Neurological: Negative. Negative for dizziness and weakness. Hematological: Negative for adenopathy. Psychiatric/Behavioral: Negative. All other systems reviewed and are negative. Social History: No Change except as noted Physical Examination: Blood pressure 144/80, pulse 82, temperature 37.5 C (99.5 F), temperature source Temporal, weight 100 kg (221 lb 6.4 oz), SpO2 96%. Physical Exam Vitals and nursing note reviewed. Constitutional: Appearance: Normal appearance. He is normal weight. HENT: Head: Normocephalic and atraumatic. Right Ear: External ear normal. Left Ear: External ear normal. Nose: Nose normal. Mouth/Throat: Mouth: Mucous membranes are moist. Pharynx: Oropharynx is clear. Eyes: Conjunctiva/sclera: Conjunctivae normal. Musculoskeletal: General: Normal range of motion. Cervical back: Normal range of motion and neck supple. Comments: Speed test right shoulder positive Skin: General: Skin is warm. Neurological: Mental Status: He is alert. Psychiatric: Mood and Affect: Mood normal. Patient Global: -- Provider Global: -- ESR: -- CRP: -- DELATORRE-28 (ESR): -- DELATORRE-28 (CRP): -- CDAI: -- Joint Exam 08/31/2023 No joint exam has been documented for this visit There is currently no information documented on the homunculus. Go to the Rheumatology activity and complete the homunculus joint exam. Diagnostic Data: No visits with results within 1 Month(s) from this visit. Latest known visit with results is: No results found for any previous visit. Assessment and Plan: 1. Biceps tendinitis of right upper extremity Patient's physical examination suspicious of bicipital tendinitis. - continue meloxicam 15 mg po daily - x ray of the shoulders ordered on previous appointment, not yet done - handout with exercises provided - if no improvement mri of the right shoulder can be considered - rigth shoulder injection with methylprednisolone 80 mg bicipital approach done today. In the past done posterior approach, which patient thinks did not helped - a muscle relaxant can be tried in the future, patient with cervical stiffness Patient ID: Aron Clifford is a 77 y.o. male. Joint Aspiration/Injection Date/Time: 08/31/2023 2:03 PM Performed by: Letha Pelletier MD Authorized by: Letha Pelletier MD Indications: pain Body area: shoulder Joint: right acromioclavicular joint Local anesthesia used: yes Anesthesia: Local anesthesia used: yes Local Anesthetic: lidocaine 1% without epinephrine Sedation: Patient sedated: no Needle size: 21 G Approach: posterior Methylprednisolone amount: 80 mg Orders Placed This Encounter Procedures Joint Aspiration/Injection All questions were answered. Regarding general care, we appreciate the primary care physician's continuing to follow the patient regarding general care, screening studies, preventative care that are appropriate for age and clinical status. Letha Pelletier MD Rheumatology Department Patient presents in office for follow-up. Right neck is stiff. documented in this encounter [facility] 12-29-2022 History of Present illness Narrative Images from the original note were not included. I have had the pleasure of seeing Mr. Aron Clifford in follow-up at Rheumatology Clinic today. As you know we see him for the following medical diagnoses: 1. Biceps tendinitis of right upper extremity No chief complaint on file. History of Present Illness: Mr. Clifford complains of right should pain. It started around October.Left shoulder is doing ok. Worse with activity. He takes tylenol 2 x 500 mg tid which helps. Also using a heating pad. Past Medical History: He has a past medical history of Bursitis, History of dysuria, Osteoarthrosis, Radicular syndrome, Sciatica, and Spinal stenosis. Current Outpatient Medications on File Prior to Visit Medication Sig Dispense Refill acetaminophen (Tylenol) 325 mg tablet Take by mouth every 8 (eight) hours if needed for mild pain. atorvastatin (Lipitor) 10 mg tablet TAKE 1 TABLET BY MOUTH EVERYDAY AT BEDTIME busPIRone (Buspar) 15 mg tablet Take 15 mg by mouth 2 (two) times a day. dilTIAZem CD (Cardizem CD) 240 mg 24 hr capsule Take by mouth 1 (one) time each day. gabapentin (Neurontin) 100 mg capsule TAKE 1 CAPSULE BY MOUTH THREE TIMES A DAY gabapentin (Neurontin) 300 mg capsule Take 300 mg by mouth twice a day. glipiZIDE (Glucotrol) 5 mg tablet TAKE ONE TABLET BY MOUTH 30 MINUTES BEFORE breakfast AND 30 MINUTES BEFORE SUPPER hydroCHLOROthiazide (HYDRODiuril) 25 mg tablet Take 25 mg by mouth 1 (one) time each day. losartan (Cozaar) 100 mg tablet Take 100 mg by mouth 1 (one) time each day. meclizine (Antivert) 12.5 mg tablet TAKE 1-2 TABLETS EVERY 8 HOURS NEEDED FOR DIZZINESS metFORMIN (Glucophage) 1,000 mg tablet Take 1,000 mg by mouth 2 (two) times a day. nabumetone (Relafen) 500 mg tablet Take 500 mg by mouth 2 (two) times a day. tamsulosin (Flomax) 0.4 mg 24 hr capsule Take by mouth 1 (one) time each day. No current facility-administered medications on file prior to visit. No past surgical history on file. Family History Problem Relation Name Age of Onset Cancer Mother Cancer Father Alcohol Use Disorder Brother Accidental Brother Social History Tobacco Use Smoking status: Never Smokeless tobacco: Never Vaping Use Vaping Use: Never used Substance Use Topics Alcohol use: Not Currently Drug use: Never Review of Systems: As stated in HPI other yarbrough complete review of system is negative Review of Systems Constitutional: Negative. Negative for chills, fatigue and unexpected weight change. HENT: Negative. Negative for mouth sores, rhinorrhea, sinus pressure, sinus pain and trouble swallowing. Eyes: Negative. Respiratory: Negative for cough and shortness of breath. Cardiovascular: Negative for chest pain and palpitations. Gastrointestinal: Negative for blood in stool, constipation, diarrhea and nausea. Genitourinary: Negative for hematuria and urgency. Musculoskeletal: Positive for arthralgias. Negative for back pain, gait problem, joint swelling, myalgias, neck pain and neck stiffness. Skin: Negative. Negative for rash. Neurological: Negative. Negative for dizziness and weakness. Hematological: Negative for adenopathy. Psychiatric/Behavioral: Negative. All other systems reviewed and are negative. Social History: No Change except as noted Physical Examination: Blood pressure 120/78, pulse 84, temperature 36.1 C (96.9 F), height 6' 1.5 (1.867 m), weight 100 kg (220 lb 6.4 oz). Physical Exam Vitals and nursing note reviewed. Constitutional: Appearance: Normal appearance. He is normal weight. HENT: Head: Normocephalic and atraumatic. Right Ear: External ear normal. Left Ear: External ear normal. Nose: Nose normal. Mouth/Throat: Mouth: Mucous membranes are moist. Pharynx: Oropharynx is clear. Eyes: Conjunctiva/sclera: Conjunctivae normal. Musculoskeletal: General: Normal range of motion. Cervical back: Normal range of motion and neck supple. Comments: Speed test right shoulder positive Skin: General: Skin is warm. Neurological: Mental Status: He is alert. Psychiatric: Mood and Affect: Mood normal. Patient Global: -- Provider Global: -- ESR: -- CRP: -- DELATORRE-28 (ESR): -- DELATORRE-28 (CRP): -- CDAI: -- Joint Exam 12/29/2022 The following joints were examined and normal: Left TMJ, Right TMJ, Left Sternoclavicular, Right Sternoclavicular, Left Acromioclavicular, Right Acromioclavicular, Left Glenohumeral, Right Glenohumeral, Left Elbow, Right Elbow, Left Wrist, Right Wrist, Left CMC, Right CMC, Left MCP 1, Right MCP 1, Left MCP 2, Right MCP 2, Left MCP 3, Right MCP 3, Left MCP 4, Right MCP 4, Left MCP 5, Right MCP 5, Left IP, Right IP, Left PIP 2, Right PIP 2, Left PIP 3, Right PIP 3, Left PIP 4, Right PIP 4, Left PIP 5, Right PIP 5, Left DIP 2, Right DIP 2, Left DIP 3, Right DIP 3, Left DIP 4, Right DIP 4, Left DIP 5, Right DIP 5, Cervical Spine, Thoracic Spine, Lumbar Spine, Left Sacroiliac, Right Sacroiliac, Left Hip, Right Hip, Left Knee, Right Knee, Left Ankle, Right Ankle, Left Subtalar, Right Subtalar, Left Tarsometatarsal, Right Tarsometatarsal, Left MTP 1, Right MTP 1, Left MTP 2, Right MTP 2, Left MTP 3, Right MTP 3, Left MTP 4, Right MTP 4, Left MTP 5, Right MTP 5, Left PIP 1 (toe), Right PIP 1 (toe), Left PIP 2 (toe), Right PIP 2 (toe), Left PIP 3 (toe), Right PIP 3 (toe), Left PIP 4 (toe), Right PIP 4 (toe), Left PIP 5 (toe), Right PIP 5 (toe), Left DIP 2 (toe), Right DIP 2 (toe), Left DIP 3 (toe), Right DIP 3 (toe), Left DIP 4 (toe), Right DIP 4 (toe), Left DIP 5 (toe), Right DIP 5 (toe) Diagnostic Data: No visits with results within 1 Month(s) from this visit. Latest known visit with results is: No results found for any previous visit. Assessment and Plan: 1. Biceps tendinitis of right upper extremity Patient's physical examination suspicious of bicipital tendinitis. - meloxicam 15 mg po daily ordered - x ray of the shoulders ordered - handout with exercises provided - if no improvement steroid injection, mri of the right shoulder can be considered Orders Placed This Encounter Procedures XR SHOULDER 2 VIEWS BILATERAL All questions were answered. Regarding general care, we appreciate the primary care physician's continuing to follow the patient regarding general care, screening studies, preventative care that are appropriate for age and clinical status. Letha Pelletier MD Rheumatology Department documented in this encounter [facility] Referral ID Status Reason Start Date Expiration Date Visits Re quested Visits Authorized * Radiology (Emergency) - Pending Review Specialty Diagnoses / Procedures Referred By Nettie smith Referred To Contact Procedures ECG Angus Birmingham MD [address] [place] [id number] Referral ID Status Reason Start Date Expiration Date V isits Requested Visits Authorized [id number] Pending Review 06/30/2022 07/25/2023 1 1 [facility]08-26-2022 Consult note* Nika Gregory MD - 07/01/2022 4:30 PM EDT Stroke Attending Addendum (Date of service 07/01/22): I have interviewed and examined patient. I have reviewed Dr. Mere Oswald's note and agree with the following highlights, additions, and addendums: The patient is a 76 y.o. right-handed male with a history of hypertension and diabetes mellitus who 06/30/22 at 8a was LKN and then while driving hiswife to a [employer] appt and he said I am just so tired and then he stopped responding. took over the car wheel and pulled them over. His eyes were open but he was not responding. By the time EMs arrived he had resolved. Episode lasted 20 minutes total. He presented to OSH where NIHSS-0. He was transferred to [facility] ER. ON arrival NIHSS-0. CT angiogram head/neck negative. He was admitted to Med Ex Obs. MRI brain diffusion weighted images negative. Patient is amnestic for event. He does report recently intermittent postural light-headedness. LDL 101, HgbA1c 11.3. ROS: Pertinent Positives and Negatives are no headache, no jerking, no tongue biting, no incontinence. All other systems reviewed and are negative. Interval Overnight History: No acute events. Neurological examination shows nonfocal exam, NIHSS-0. Assessment/Plan: Episode of unresponsiveness. Clinically this is not consistent with TIA. Differential diagnosis includes syncope vs seizure (less likely given no signs or symptoms).Recommend EEG and TTE. Recommend no driving x 6 months. Follow-up with PCP re: HgbA1c 11.3. . Follow-up with outaptient neurology (patient from [facility]). DC after work up completed. Nika Gregory MD [facility] Work Phone: [phone]) 392-778908-26-2022 Consult note* Nika Gregory MD - 07/01/2022 4:30 PM EDT Stroke Attending Addendum (Date of service 07/01/22): I have interviewed and examined patient. I have reviewed Dr. Mere Oswald's note and agree with the following highlights, additions, and addendums: The patient is a 76 y.o. right-handed male with a history of hypertension and diabetes mellitus who 06/30/22 at 8a was LKN and then while driving hiswife to a [employer] appt and he said I am just so tired and then he stopped responding. took over the car wheel and pulled them over. His eyes were open but he was not responding. By the time EMs arrived he had resolved. Episode lasted 20 minutes total. He presented to OSH where NIHSS-0. He was transferred to [facility] ER. ON arrival NIHSS-0. CT angiogram head/neck negative. He was admitted to Med Ex Obs. MRI brain diffusion weighted images negative. Patient is amnestic for event. He does report recently intermittent postural light-headedness. LDL 101, HgbA1c 11.3. ROS: Pertinent Positives and Negatives are no headache, no jerking, no tongue biting, no incontinence. All other systems reviewed and are negative. Interval Overnight History: No acute events. Neurological examination shows nonfocal exam, NIHSS-0. Assessment/Plan: Episode of unresponsiveness. Clinically this is not consistent with TIA. Differential diagnosis includes syncope vs seizure (less likely given no signs or symptoms).Recommend EEG and TTE. Recommend no driving x 6 months. Follow-up with PCP re: HgbA1c 11.3. . Follow-up with outaptient neurology (patient from [facility]). DC after work up completed. Nika Gregory MD * Mere Oswald MD - 06/30/2022 3:51 PM EDT Neurovascular Evaluation Note Evaluation Date: 06/30/2022 Unit: [id number] Consultation was requested by Dr. Angus Birmingham MD Patient status: Emergency Length of stay: 0 days Reason for Consult/Chief Complaint Concern for TIA vs stroke History of Present Illness Bryan Clifford is a 76 y.o. male with PMH significant for HTN, T2DM who presents with unresponsiveness. A stroke alert was called for STAT consultation. Patient was driving with his and he suddenly stopped talk to her. LKW 0800. Patient was awake,just not responding. She has to put her foot on the break to stop the car. By the time he got to the ED symptoms were gone. Her reportedly took over the car's control and called EMS. His symptoms were resolved by the time EMS arrived to the scene. He doesn't report any headache, numbness, weakness, tingling, dizziness, vision changes. He doesn't have any history of prior TIA, stroke, seizures, bleeding or clotting disorders or cancer. There is no family history of stroke, seizures or bleeding or clotting disorders. Review of Systems A complete review of systems was negative except for: Neurologic: positive for confusion Neurovascular-specific History / Information Home antiplatelet/anticoagulation therapy: Antiplatelet therapy: Aspirin 81mg. Patient Current Risk Factors: Stroke risk factors include hypertension or diabetes mellitus. Prior stroke history: no. Family Hx of Stroke: Parents: no Siblings: no Stroke Diagnostic/Treatment Eligibility Information Not in the window for tPA. Time to tPA delayed due to: N/A Stroke Clinical Assessment Information: NIHSS (Provider) Flowsheet Row First Filed Value Provider NIH Stroke Scale NIH Interval (Provider) admission filed on 06/30/2022 1611 NIH Level of Conciousness (Provider) 0 filed on 06/30/2022 1611 NIH LOC Questions (Provider) 0 filed on 06/30/2022 1611 NIH LOC Commands (Provider) 0 filed on 06/30/2022 1611 NIH Best Gaze (Provider) 0 filed on 06/30/2022 1611 NIH Visual (Provider) 0 filed on 06/30/2022 1611 NIH Facial Palsy (Provider) 0 filed on 06/30/2022 1611 NIH Left Arm Motor (Provider) 0 filed on 06/30/2022 1611 NIH Right Arm Motor (Provider) 0 filed on 06/30/2022 1611 NIH Left Leg Motor (Provider) 0 filed on 06/30/2022 1611 NIH Right Leg Motor (Provider) 0 filed on 06/30/2022 1611 NIH Limb Ataxia (Provider) 0 filed on 06/30/2022 1611 NIH Sensory (Provider) 0 filed on 06/30/2022 1611 NIH Best Language (Provider) 0 filed on 06/30/2022 1611 NIH Dysarthria (Provider) 0 filed on 06/30/2022 1611 NIH Extinction and Inattention (Provider) 0 filed on 06/30/2022 1611 NIH Total Score (Provider) 0 filed on 06/30/2022 1611 Is NIH=0 Within 180 min of Last Known Well Time? -- Stroke Scales Flowsheet Row Most Recent Value NIH Total Score (Provider) 0 filed on 06/30/2022 1611 Past Medical History Medical History: No past medical history on file. SURGICAL HISTORY: No past surgical history on file. SOCIAL HISTORY: Medications PRIOR TO ARRIVAL MEDS: Prior to Admission medications Not on File Current Meds: Current Facility Administered Meds: Current Facility-Administered Medications Medication Dose Route Frequency Provider Last Rate Last Admin hydrALAZINE (APRESOLINE) injection 10 mg 10 mg Intravenous Q10 MIN PRN Lucy Waggoner MD labetalol (NORMODYNE) injection 20 mg 20 mg Intravenous Q10 MIN PRN Lucy Waggoner MD sodium chloride 0.9% IV solution Intravenous Continuous Lucy Waggoner MD 75 mL/hr at 06/30/22 1620 New Bag at 06/30/22 1620 No current outpatient medications on file. Scheduled Meds: Continuous Infusions: PRN Meds: Vitals Objective Findings: Vital Signs (24hrs): Pulse (Heart Rate): [99-108] 99 Resp Rate: [16] 16 BP: (154)/(84) 154/84 O2 Sat (%): [96 %] 96 % Weight: [95.6 kg (210 lb 12.2 oz)] 95.6 kg (210 lb 12.2 oz) There is no height or weight on file to calculate BMI. Lines/Drains/Airways/Wounds: Patient Lines/Drains/Airways Status Active Lines, Drains, Airways, & Wound Overview Name Placement date Placement time Site Days Peripheral IV Line - Single Lumen 06/30/22 1622 median cubital vein (antecubital fossa), left 06/30/22 1622 -- less than 1 Physical Exam General: Laying comfortably in bed; in no acute distress. CV: RRR. Pulmonary: No increased work of breathing, equal chest rise bilaterally, no audible wheezing. Abdomen: soft, non-tender Ext: No cyanosis, edema, or deformity Skin: No rash Neurological Examination Psych and Mental status: alert; oriented to person, place, year, and month; good attention Speech/language: fluent; comprehension intact; object naming intact; repetition intact Cranial nerves: CN II visual hou full to confrontation without visual extinction CN III, IV, PERRL. EOMI. CN V facial sensation intact to light touch bilaterally in V1, V2, V3 CN VII face, smile, eyebrow raise/closure symmetric CN VIII hearing grossly intact to voice CN IX & X soft palate elevates symmetrically in the midline, no dysarthria CN XI shoulder shrug full strength bilaterally CNXII tongue protrudes midline Motor: Normal bulk and tone. Right Arm: no drift Left Arm: no drift Right Leg: no drift Left Leg: no drift Reflexes: Intact and 2+ throughout. Coordination: [id number] intact bilaterally. Rapid alternating movements are normal. Sensation: intact to light touch throughout without extinction. Laboratory Results Diagnostics/Procedures: Labs-CBC WBC/Hgb/Hct/Plts: 10.00/14.6/43.1/276 (06/30 1608) Labs-Chem 7([facility]) Bun/Creat/Cl/CO2/Glucose: --/--/--/--/191 (08/25 1604) Labs-Coags Additional Labs No results found for: CHOLESTEROL, TRIG, HDL, LDLCALC, LDLDIRECT Labs-Hemoglobin A1C No results found for: HGBA1C Imaging Imaging was analyzed by [facility], No LVO CT Stroke Head:No bleeding or infarct. CTA Brain/Neck: No LVO on my read. Assessment/Impression Bryan Clifford is a 76 y.o. male with PMH significant for HTN, T2DM who presents with unresponsiveness. Differential diagnosis includes TIA, seizure, toxic or metabolic etiologies. NIH was 0 on my exam. He doesn't have any focal neurological deficits on exam. His CTH and CTA werenegative for any bleed, LVO. Plan -Please admit to CDU for TIA evaluation and work-up -Swallow evaluation prior to any oral intake -Blood pressure goal SBP <220 mmHg and DBP <110 mmHg -Aspirin 81 mg orally or Aspirin 300 mg rectally -Routine EEG -Recommend a MRI Brain without contrast -Recommend TTE, Lipid panel, HgbA1c, LFT -PT, OT and Speech therapy evaluation if patient continues to have symptoms -Continuous telemetry, obtain EKG Code Status: No Order DVT prophylaxis: SCDs Diet: DIET NPO WITHOUT meds Patient and plan discussed with neurovascular attending, Dr. Madera. Signed, M Miguel Oswald MD PGY-4 [facility]* Nursing Notes - Frieda Castaneda RN - 07/01/2022 4:28 PM EDT AVS discussed with pt and family, reviewed medications, follow ups, care instructions; no further questions. IV removed. VSS, assessment unchanged. All personal belongings with pt. [facility]08-26-2022 Miscellaneous Notes* Nursing Notes - Frieda Castaneda RN - 07/01/2022 4:28 PM EDT AVS discussed with pt and family, reviewed medications, follow ups, care instructions; no further questions. IV removed. VSS, assessment unchanged. All personal belongings with pt. * CDU Provider Note - Roshan Aldridge MD - 07/01/2022 1:53 PM EDT This patient was appropriately risk stratified for observation level of care and placed on an observation protocol in our Clinical Decision Unit. The patient's intensity of service and severity of illness was appropriately aligned with observation level of care. Medical Decision Making: This 76-year-old male was put in the observation unit because of an episode of unresponsiveness while driving. This happened yesterday and his had to take control of the car and he was unresponsive even when EMS arrived. The whole duration of this. Lasted about 30 40 minutes. He had nothing tosuggest motor dysfunction or seizure activity and had no incontinence He did not have post to confusion but now he is alert and oriented. He came in in order to see our stroke team and his CT Kim of his brain and neck were negative, MRI did not show a stroke but did show small vessel disease. Chemistry was remarkable for glucose at 2:02 a.m. but otherwise fairly unremarkable. He did have an elevated cholesterol and triglyceride and CBC was normal but he did have a hemoglobin a 1 C of 11.2 He also had an EEG and a cardiac echo which are currently pending So far possible etiologies include TIA, seizure, total global amnesia Physical Exam: On exam he was alert oriented x3 his cardiac and lung exam was unremarkable and his neurologic examrevealed no lateralizing findings and no pro Naderdrift Disposition: Discharge The patient has met appropriate clinical criteria to be discharged from this CDU observation protocol. Reasons to return to the ED were discussed with the patient. The patient will be instructed to follow up with their primary care physician or specialist; if the patient does not have a physician to see in follow up, our CDU clinical rn field case manager will assist the patient with their follow up needs. Clinical Impression: 1) neurologic event due to seizure or TGA 2) neurology consultation I saw and evaluated the patient with DARI. I provided a substantive portion of the care for this patient. I personally performed all aspects of the medical decision making for this encounter. I have reviewed and verified this with the DARI so that it accurately reflects our care. * Treatment Plan - Marcial Dixon Emelia, FILM INSPECTOR-FOIL OPERATOR - 07/01/2022 12:59 PM EDT Neurovascular update: Please see the consult note by Dr. Oswald for a detailed note. Patient was seen and examined with stroke attending Dr. Gregory. Spoke with patient's at bedside. She described episode of unresponsiveness and altered mental status while driving. Patient remained alert at that time, was just not responding to her. Episode lasted about 20 minutes & patient's symptoms resolved by the time EMS arrived. Patient's denies any twitching, jerking, rigidity, or bowel/bladder incontinence. She reports episodes of dizziness/lightheadedness upon standing for the past couple of months. She reports patient has never passedout, does not follow with a local neurologist. Syncopal event CTH: no hemorrhage or large territory stroke CTA brain/neck: no LVO MRI brain: No acute stroke TTE: EF 55-60%, no significant valvular disease, no LV thrombus or PFO Routine EEG: No epileptogenic abnormalities were recorded EKG on admission: NSR LDL 101 HgbA1c 11.2 Recommendations: -Continue home Atorvastatin 10 mg daily -SBP goal <220 -Recommend follow up with local neurologist within 2-4 weeks of discharge -Recommend NO driving for at least 6 months. Patient to be cleared by local neurologist before resuming driving. -Follow up with PCP in 1-2 weeks after discharge -No further work up from stroke perspective Provider NIH Stroke Scale NIH Interval (Provider): daily NIH Level of Conciousness (Provider): 0 NIH LOC Questions (Provider): 0 NIH LOC Commands (Provider): 0 NIH Best Gaze (Provider): 0 NIH Visual (Provider): 0 NIH Facial Palsy (Provider): 0 NIH Left Arm Motor (Provider): 0 NIH Right Arm Motor (Provider): 0 NIH Left Leg Motor (Provider): 0 NIH Right Leg Motor (Provider): 0 NIH Limb Ataxia (Provider): 0 NIH Sensory (Provider): 0 NIH Best Language (Provider): 0 NIH Dysarthria (Provider): 0 NIH Extinction and Inattention (Provider): 0 NIH Total Score (Provider): 0 This plan was discussed with stroke attending Dr. Gregory and has been communicated to [facility] [employer] team. Neurovascular team will sign off. Please call with any questions. CHE Camarena 07/01/2022 12:59 PM * CDU Provider Note - CHE Dominguez - 06/30/2022 9:36 PM EDT DEPARTMENT OF EMERGENCY MEDICINE CHIEF COMPLAINT Chief Complaint Patient presents with Altered mental status HISTORY OF PRESENT ILLNESS Bryan Clifford is a 76 y.o. male was appropriately risk stratified for observation level of care and was placed on the ED TIA protocol. This patient has a history of HTN, DM, back pain. He presents with concern for transient AMS. Patient reports he was driving with his spouse as a passenger. He admit to increased fatigue, feeling very tired . Spouse reports patient reports feeling tired and she pull the car into the nearby [employer] but per report, patient continued to drive and looked like he didn't understand what she was saying. Spouse reports she was able to take control of the car and get the car to stop. She called the squad team and patient was taken to the local ED. Of note, ramses martínez admits to intermittent dizziness over the Summer. He denies fever, chills, chest pain, shortness of breath, syncope. Denies dysuria but admits to some urinary frequency. CT head, CTA were negative for acute findings. Patient was evaluated by neurovascular and further evaluation with MRI brain,TTE was recommended. Personal, surgical, family, and social history reviewed with patient. REVIEW OF SYSTEMS Review of Systems Constitutional: Negative for chills and fever. Eyes: Negative for blurred vision and double vision. Respiratory: Negative for cough and shortness of breath. Cardiovascular: Negative for chest pain and palpitations. Gastrointestinal: Negative for abdominal pain, nausea and vomiting. Neurological: Positive for dizziness (intermittent). Negative for sensory change, speech change andfocal weakness. Transient AMS All other systems reviewed and are negative. All Other Systems Were Reviewed And Negative Unless Otherwise Noted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 [facility] in your time of healthcare need and for allowing us to answer your questions today. If any other questions or concerns arise, please do not hesitate to ask. At this time, there are not signs of immediately serious illness or injury, but conditions can change and/or develop with time, and, not all signs or symptoms may have been shown at this visit. Please return to the ER or see a doctor immediately if you have extremity weakness, slurred speech,imbalance or any new concerning symptom. Continue home Atorvastatin 10 mg daily Discuss with PCP for systolic blood pressure goal <220 and establishing with a neurologist closeto home. Recommend follow up with local neurologist within 2-4 weeks of discharge -Recommend NO driving for at least 6 months. Patient to be cleared by local neurologist before resuming driving. -Follow up with PCP in 1-2 weeks after discharge Below are the labs and imaging that were obtained during your visit. Please provide this to your primary care provider at your follow up. Your EEG showed: No seizure like activity noted in the brain. Your Transthoracic Echocardiogram showed: Technically difficult study with limited images obtained. Left ventricular size and wall motion are grossly normal. Estimated LV ejection fraction is 55-60%. No evidence of LV thrombus. Right ventricular size and function are grossly normal. Right ventricular systolic pressure is unable to be estimated. No hemodynamically significant valvular disease. The aortic root is not well visualized but appears dilated and measures moderately dilated at 4.35 cm. There is no evidence of right to left atrial level shunt with agitated saline study. There is no pericardial effusion present. Findings Left Ventricle Chamber size is normal. Normal wall thickness. No concentric nor eccentric hypertrophy. Normal global wall motion. Regional wall motion is normal. Ejection fraction is normal (55 - 60%). Diastolic function could not be determined. No thrombus is present. Right Ventricle Chamber size is normal. Normal wall thickness. Segmental wall motion is normal. Systolic function is normal. Left Atrium Chamber size is normal. Right Atrium Chamber size is normal. Septum The atrial septum is normal. No evidence of patent foramen ovale determined by color flow and saline contrast. Mitral Valve Normal appearing leaflets. Leaflet mobility is normal. Trace regurgitation. No valve stenosis. Aortic Valve Aortic valve not well visualized. No regurgitation. No stenosis. Tricuspid Valve Normal leaflets. Leaflet mobility is normal. Trace regurgitation. No stenosis. Pulmonary artery systolic pressure (PASP) is unable to be estimated. Pulmonic Valve Pulmonic valve not well visualized. No stenosis. Aorta Sinuses of Valsalva/aortic root is moderately enlarged. Not well visualized but appears to bedilated. SOV: 4.35 cm. STJ: 4.31 cm. Pericardium Appears normal. No pericardial effusion. IVC/SVC The inferior vena cava structure has a diameter <21 mm and decreases >50% during inspiration. Pulmonary Artery Pulmonary artery not assessed. Your MRI brain showed: Patchy white matter changes. Moderate volume loss. No acute infarct. No acute hemorrhage. No mass effect or midline shift. Ventricular enlargement and sulcal prominence related to volume loss. VASCULAR: Patent vascular structures. Cavernous sinus symmetric. No dural venous sinus thrombosis. No aneurysms. ORBITS: Normal. SOFT TISSUE: Soft tissues and scalp are normal. OSSEOUS: Normal calvarium. Sinuses clear. Mastoids clear. IMPRESSION: No acute infarct. Sequela of chronic small vessel disease. * Attachments The following attachments cannot be sent through Care Everywhere. * Lightheadedness or Faintness (H[place] Konger) documented in this encounterOS[facility] NoteAcute Coronary Syndrome (ACS): Initial Evaluation and Management: [email or web address] [email or web address] [facility]08-25-[facility] Note* CDU Provider Note - River Sultana NIKITA Pinto-FOIL OPERATOR - 06/30/2022 9:36 PM EDT DEPARTMENT OF EMERGENCY MEDICINE CHIEF COMPLAINT Chief Complaint Patient presents with Altered mental status HISTORY OF PRESENT ILLNESS Bryan Clifford is a 76 y.o. male was appropriately risk stratified for observation level of care and was placed on the EDOU TIA protocol. This patient has a history of HTN, DM, back pain. He presents with concern for transient AMS. Patient reports he was driving with his spouse as a passenger. He admit to increased fatigue, feeling very tired . Spouse reports patient reports feeling tired and she pull the car into the nearby [employer] but per report, patient continued to drive and looked like he didn't understand what she was saying. Spouse reports she was able to take control of the car and get the car to stop. She called the squad team and patient was taken to the local ED. Of note, ramses martínez admits to intermittent dizziness over the Summer. He denies fever, chills, chest pain, shortness of breath, syncope. Denies dysuria but admits to some urinary frequency. CT head, CTA were negative for acute findings. Patient was evaluated by neurovascular and further evaluation with MRI brain,TTE was recommended. Personal, surgical, family, and social history reviewed with patient. REVIEW OF SYSTEMS Review of Systems Constitutional: Negative for chills and fever. Eyes: Negative for blurred vision and double vision. Respiratory: Negative for cough and shortness of breath. Cardiovascular: Negative for chest pain and palpitations. Gastrointestinal: Negative for abdominal pain, nausea and vomiting. Neurological: Positive for dizziness (intermittent). Negative for sensory change, speech change andfocal weakness. Transient AMS All other systems reviewed and are negative. All Other Systems Were Reviewed And Negative Unless Otherwise Noted PAST MEDICAL HISTORY HTN Diabetes Back paom SURGICAL HISTORY Back surgery MEDICATIONS GIVEN IN THE ED Medications sodium chloride 0.9% IV solution ( Intravenous $$New Bag$$ 06/30/22 1620) labetalol (NORMODYNE) injection 20 mg (has no administration in time range) hydrALAZINE (APRESOLINE) injection 10 mg (has no administration in time range) acetaminophen (TYLENOL) tablet 650 mg (has no administration in time range) ondansetron 4mg/2ml (ZOFRAN) injection 4 mg (has no administration in time range) Or ondansetron (ZOFRAN) tablet 4 mg (has no administration in time range) alum/mag hydrox.-simethicone oral suspension 30 mL (has no administration in time range) sodium chloride (PF) 0.9 % injection 1-100 mL (20 mL Intravenous Given 06/30/22 9709) Iopamidol (370 mg/mL) (ISOVUE) 76 % 1-162 mL (100 mL Intravenous Given - Radiology 06/30/22 6593) ALLERGIES No Known Allergies FAMILY HISTORY No pertinent family history SOCIAL HISTORY Social History Socioeconomic History Marital status: Spouse name: Not on file Number of children: Not on file Years of education: Not on file Highest education level: Not on file Occupational History Not on file Tobacco Use Smoking status: Not on file Smokeless tobacco: Not on file Substance and Sexual Activity Alcohol use: Not on file Drug use: Not on file Sexual activity: Not on file Other Topics Concern Not on file Social History Narrative Not on file Social Determinants of Health Financial Resource Strain: Not on file Food Insecurity: Not on file Transportation Needs: Not on file Physical Activity: Not on file Stress: Not on file Social Connections: Not on file Intimate Partner Violence: Not on file Housing Stability: Not on file PHYSICAL EXAM BP 141/86 Pulse 85 Resp 21 Wt 95.6 kg (210 lb 12.2 oz) SpO2 96% Physical Exam Vitals reviewed. Constitutional: Appearance: Normal appearance. He is well-developed. HENT: Head: Normocephalic and atraumatic. Nose: Nose normal. Mouth/Throat: Mouth: Mucous membranes are moist. Eyes: Extraocular Movements: Extraocular movements intact. Pupils: Pupils are equal, round, and reactive to light. Cardiovascular: Rate and Rhythm: Normal rate and regular rhythm. Pulses: Normal pulses. Heart sounds: Normal heart sounds. Pulmonary: Effort: Pulmonary effort is normal. No respiratory distress. Breath sounds: Normal breath sounds. Abdominal: General: Bowel sounds are normal. Palpations: Abdomen is soft. Musculoskeletal: General: No tenderness. Normal range of motion. Cervical back: Normal range of motion and neck supple. No rigidity. Lymphadenopathy: Cervical: No cervical adenopathy. Skin: General: Skin is warm and dry. Neurological: General: No focal deficit present. Mental Status: He is alert and oriented to person, place, and time. Comments: Patient is alert and oriented x3. Speech is clear and appropriate. Moves all extremities.No motor or sensory deficits noted at present. Gait not assessed. Psychiatric: Mood and Affect: Mood normal. Behavior: Behavior normal. EDOU COURSE & MEDICAL DECISION MAKING Risk stratification appropriate for observation level of care. Patient was placed in EDOU on the TIA protocol. Patient age greater than 64y/o? YES Geriatrics Screening: Delirium Triage Screen: (!) 1 Exclusion Criteria: Non-zero scores are abnormal. The above score does not represent acute delirium based on my assessment. Stage Balance Assessment Score: 0 Exclusion Criteria: Patient unable to stand due to treatment for medical condition Non-zero scores are abnormal. The patient does not need urgent physical and occupational therapy consultation or referral for fall risk assessment based on the above score and my assessment. ISAR Score: 1 Exclusion Criteria: Before the illness or injury that brought you to the Emergency Department, did you need someone to help you on a regular basis?: No In the last 24 hours, have you needed more help than usual?: Yes Have you been hospitalized for one or more nights during the past 6 months?: No In general, do you have serious problems with your vision, that cannot be corrected by glasses?: No In general, do you have serious problems with your memory?: No Do you take six or more different medications every day?: No Scores of 2 or higher should prompt consideration of case management consultation. The patient doesnot need case management based on my assessment. The patient does not Geriatrics consultation or outpatient referral based on the above screening and my assessment. DDx includes: concern for TIA vs CVA vs transient global amnesia vs seizure I reviewed the patients' medical records and nursing notes and noted their allergies, past medical history, and previous visits. The patient received the following interventions in the ED to date: MRI BRAIN WITHOUT CONTRAST CT ANGIO BRAIN/NECK Preliminary Result IMPRESSION: No acute CTA findings. CT STROKE HEAD-STROKE ALERT ONLY Preliminary Result IMPRESSION: No evidence of acute intracranial abnormality. Findings were discussed with stroke team Dr. Oswald at 4:13pm on 06/30. ECHOCARDIOGRAM (Results Pending) Labs Reviewed [facility] 7 - ED - Abnormal; Notable for the following components: Result Value Glucose 202 (*) All other components within normal limits PTT - Abnormal; Notable for the following components: PTT 20.7 (*) All other components within normal limits CBC AND ELECTRONIC DIFF - Abnormal; Notable for the following components: Segs + Bands,Absolute Auto 6.85 (*) Immature Grans Absolute 0.19 (*) All other components within normal limits LIPID PANEL W CALCULATED LDL - Abnormal; Notable for the following components: Cholesterol 218 (*) Triglycerides 233 (*) Calculated LDL Cholesterol 109 (*) Non HDL Cholesterol 156 (*) All other components within normal limits HEMOGLOBIN A1C - Abnormal; Notable for the following components: Hemoglobin A1C 10.8 (*) All other components within normal limits GLUCOSE POC - Abnormal; Notable for the following components: Glucose (POC Device) 191 (*) All other components within normal limits Narrative: Test performed at address of the patient encounter. TOXICOLOGY SCREEN URINE - UDRG - Abnormal; Notable for the following components: Drugs Detected Urine Tox Gabapentin Diltiazem (*) Cannabinoids (Marijuana) Presumptive Positive (*) All other components within normal limits Narrative: For Medical Purposes Only. Nonforensic screen results are considered presumptive and no confirmatory testing will follow. Drugs are detected by immunoassay or Liquid Chromatography Mass Spectrometry (LC-MS/MS). The LC-MS/MS test was developed and its performance characteristics determined by the Toxicology Laboratory at [facility]. It has not been cleared or approved by the FDA. The laboratory is regulated under CLIA as qualified to perform high-complexity testing. This test is used for clinical purposes and should not be regarded as investigational or forresearch. The following drugs with their lowest level of detection in ng/ml(LOD) are included in this screen: 6 Monoacetylmorphine(300), 7 Aminoflunitrazepam(25), 7 Aminoclonazepam(50),7 hydroxymitragynine (100),Alphahydroxymidazolam (200), Alphahydrozyalprazolam(200), Alprazolam(50), Amitriptyline(50), Amphe tamine(250), Atenolol(500),Benzoylecgonine(50), Buprenorphine(100), Bupropion(25),Caffeine(29388),Chlordiazepoxide(50), Chlorpheniramine(100), Chlorpromazine(50), Citalopram(100), Clonazepam(200), Cocaine(25),Codeine(200), Cotinine(500),Desipramine(50), Desmethyldoxepin(100), Dextromethorphan(100), Diazepam(100), Dihydrocodeine(100), Diltazem(50), Diphenhydramine(100),Doxepin(100),EDDP/methadone(100), Ephedrine/Pseudoephedrine(100),Fentanyl(25),Flunitrazepam(100),Fluoxetine(200), Flurazepam(50),Gabapentin(1500), Haloperidol(25), Hydrocodone(100), Hydromorphone(200), Imipramine(50), Ketamine(25), Lidocaine(25),Lorazepam(100), Lysergide(LSD)(25),Maprotiline(200), MDA(250), MDMA(250), Meperidin e(50),Midazolam (200),Methadone(50), Methamphetamine(500), Methylphenidate(50), Metoprolol(50), Morphine(200),Nalbuphine(50), Naloxone(200), Norbuprenorphine(300), Nordiazepam(100), Norfentanyl(50),Noroxycodone (100), Norpropoxyphene(50), Nortriptyline(50), Olanzapine(200),Oxazepam(200),Oxycodon e(100),Oxymorphone(200), Phencyclidine(PCP)(25), Pheniramine(25), Pregabalin(1500), Promethazine(50), Propoxyphene(100), Propanolol(50), Quetiapine(25), Quinidine(500), Ranitidine(500), Risperidone(100), Sertraline(50),Temazepam(100), Thioridazine(100), Tramadol(50), Trazodone(25), Triazolam(100), Trifluoperazine (100),Venlafaxine(50), Verapamil(100), Zolpidem(200) HEPATIC FUNCTION PANEL - Normal PTINR-STROKE - Normal HIGH SENSITIVITY TROPONIN I - SINGLE ORDER - Normal Narrative: Acute Coronary Syndrome (ACS): Initial Evaluation and Management: [email or web address]%20Sy [email or web address]#[email or web address] URINE DIPSTICK; REFLEX MICROSCOPY; REFLEX CULTURE PERFORMABLE - Normal CBC, EDIF, PLATELET Narrative: The following orders were created for panel order CBC, EDIF, PLATELET. Procedure Abnormality Status --------- ------ CBC AND ELECTRONIC DIFF[[id number]] Abnormal Final result Please view results for these tests on the individual orders. MINT GREEN TOP TUBE RAINBOW DRAW Narrative: The following orders were created for panel order RAINBOW DRAW. Procedure Abnormality Status --------- ------ GOLD TOP TUBE[[id number]] In process MINT GREEN TOP TUBE[[id number]] Final result LAVENDER TOP TUBE[[id number]] In process LT BLUE TOP TUBE[[id number]] In process Please view results for these tests on the individual orders. GOLD TOP TUBE LAVENDER TOP TUBE LT BLUE TOP TUBE LIPID PANEL W CALCULATED LDL HEMOGLOBIN A1C URINE DIPSTICK; REFLEX MICROSCOPY; REFLEX CULTURE Narrative: The following orders were created for panel order URINE DIPSTICK; REFLEX MICROSCOPY; REFLEX CULTURE. Procedure Abnormality Status --------- ------ URINE DIPSTICK; REFLEX M...[[id number]] Normal Final result EXTRA MICRO[[id number]] In process Please view results for these tests on the individual orders. EXTRA MICRO We will continue with neuro checks and proceed with MRI brain, TTE. PT consult also pending in am given report of intermittent dizziness. While in the EDOU we will continue to check, monitor and reassess patient and alter our plan as clinically appropriate. I will discuss with the EDOU attending physician. This is a non-shared visit on 06/30/2022. Electronically signed by: CHE Dominguez, 06/30/2022 9:36 PM [facility]08-25-2022 Physician Emergency department Note* Angus Birmingham MD - 06/30/2022 4:48 PM EDT ED Staffing Note Chief complaint: Chief Complaint Patient presents with Altered mental status Bryan Clifford is a 76 y.o. year old male who presents with AMS. Had a period where he became unresponsive while driving. Now resolved PMH: DM, HTN Social History Socioeconomic History Marital status: Not on file Spouse name: Not on file Number of children: Not on file Years of education: Not on file Highest education level: Not on file Occupational History Not on file Tobacco Use Smoking status: Not on file Smokeless tobacco: Not on file Substance and Sexual Activity Alcohol use: Not on file Drug use: Not on file Sexual activity: Not on file Other Topics Concern Not on file Social History Narrative Not on file Social Determinants of Health Financial Resource Strain: Not on file Food Insecurity: Not on file Transportation Needs: Not on file Physical Activity: Not on file Stress: Not on file Social Connections: Not on file Intimate Partner Violence: Not on file Housing Stability: Not on file No family history on file. Review of systems including constitutional, skin, HEENT, eyes, CV, respiratory, GI, , MSK, endocrine, neurologic, psychiatric reviewed and negative except as noted above. DDx: TIA, CVA, Transient global amnesia Impression: TIA Plan: Labs ED Course: Pt was stable on arrival. NAD. Symptomatic currently. Plan for labs, CT. Prior medical records were reviewed. All pertinent labs and imaging results were reviewed and interpreted by me. The patient was updated regarding findings, and was re-assessed during ED stay. This patient's history and physical exam were performed by the resident. On 06/30/2022 I saw and examined the patient. I discussed the history and examination with the resident and agree with the plan of care. In addition, I have fully participated in the care of this patient. I have reviewed all pertinent clinical information, including history, physical exam and medical decision making with the resident. Angus Birmingham MD 06/30/22 1319 [facility] Work Phone: [phone]) 122-802908-25-2022 Emergency department Note* Angus Birmingham MD - 06/30/2022 4:48 PM EDT ED Staffing Note Chief complaint: Chief Complaint Patient presents with Altered mental status Bryan Clifford is a 76 y.o. year old male who presents with AMS. Had a period where he became unresponsive while driving. Now resolved PMH: DM, HTN Social History Socioeconomic History Marital status: Not on file Spouse name: Not on file Number of children: Not on file Years of education: Not on file Highest education level: Not on file Occupational History Not on file Tobacco Use Smoking status: Not on file Smokeless tobacco: Not on file Substance and Sexual Activity Alcohol use: Not on file Drug use: Not on file Sexual activity: Not on file Other Topics Concern Not on file Social History Narrative Not on file Social Determinants of Health Financial Resource Strain: Not on file Food Insecurity: Not on file Transportation Needs: Not on file Physical Activity: Not on file Stress: Not on file Social Connections: Not on file Intimate Partner Violence: Not on file Housing Stability: Not on file No family history on file. Review of systems including constitutional, skin, HEENT, eyes, CV, respiratory, GI, , MSK, endocrine, neurologic, psychiatric reviewed and negative except as noted above. DDx: TIA, CVA, Transient global amnesia Impression: TIA Plan: Labs ED Course: Pt was stable on arrival. NAD. Symptomatic currently. Plan for labs, CT. Prior medical records were reviewed. All pertinent labs and imaging results were reviewed and interpreted by me. The patient was updated regarding findings, and was re-assessed during ED stay. This patient's history and physical exam were performed by the resident. On 06/30/2022 I saw and examined the patient. I discussed the history and examination with the resident and agree with the plan of care. In addition, I have fully participated in the care of this patient. I have reviewed all pertinent clinical information, including history, physical exam and medical decision making with the resident. Angus Birmingham MD 06/30/22 6024 * PHILIPP Ramey - 06/30/2022 4:02 PM EDT SW responded to Stroke Alert transferred from [facility] transported by [facility]. Per EMS, patient's (Africa Clifford [phone]) and patient's daughter are en route to this ED. SW to remain available as needed. EMANUEL Berg, [place], [facility] [employer], Emergency Department [phone] * Angela Lizarraga RN - 06/30/2022 3:58 PM EDT Patient arrives from [facility]. Patient had an episode of confusion, brought to [place] by EMS. Patient had a CT at [facility]SH which did not reveal a stroke. Patient being transferred to [facility] for further evaluation. For EMS patient has good strength in all extremities, is A&O x 4. BG 194. Per EMS, no deficits at this time. Time of episode of altered mental status happened around 0800 this morning. * Angela Lizarraga RN - 06/30/2022 3:58 PM EDT Bed: E035 Expected date: 06/30/22 Expected time: 3:45 PM Means of arrival: Private Ambulance Comments: * Lucy Waggoner MD - 06/30/2022 3:53 PM EDT EMERGENCY DEPARTMENT ENCOUNTER S: CHIEF COMPLAINT: No chief complaint on file. HPI: Bryan Clifford is a 76 y.o. male with history of HTN, HLD and DM2 who presents as a transfer from an outside hospital as a level A stroke alert. LKW was 0800. Patient was driving with when he stopped responding to her. She had to push the break to get the car to stop. By the time he arrived to the OSH, symptoms had resolved. NIH 0. Transfer by ground for neurology consultation. NIH 0 on arrival REVIEW OF SYSTEMS: Negative aside from what is in HPI. Review of all systems performed. PAST MEDICAL HISTORY No past medical history on file. SURGICAL HISTORY No past surgical history on file. CURRENT MEDICATIONS No current outpatient medications on file. ALLERGIES Not on File FAMILY HISTORY No family history on file. SOCIAL HISTORY Social History Socioeconomic History Marital status: Not on file Spouse name: Not on file Number of children: Not on file Years of education: Not on file Highest education level: Not on file Occupational History Not on file Tobacco Use Smoking status: Not on file Smokeless tobacco: Not on file Substance and Sexual Activity Alcohol use: Not on file Drug use: Not on file Sexual activity: Not on file Other Topics Concern Not on file Social History Narrative Not on file Social Determinants of Health Financial Resource Strain: Not on file Food Insecurity: Not on file Transportation Needs: Not on file Physical Activity: Not on file Stress: Not on file Social Connections: Not on file Intimate Partner Violence: Not on file Housing Stability: Not on file O: PHYSICAL EXAM: Vital Signs:There were no vitals taken for this visit. Physical Exam Vitals and nursing note reviewed. Constitutional: General: He is not in acute distress. Appearance: Normal appearance. He is well-developed and normal weight. He is not ill-appearing, toxic-appearing or diaphoretic. HENT: Head: Normocephalic and atraumatic. Nose: Nose normal. No congestion or rhinorrhea. Mouth/Throat: Mouth: Mucous membranes are moist. Eyes: General: No visual field deficit or scleral icterus. Extraocular Movements: Extraocular movements intact. Conjunctiva/sclera: Conjunctivae normal. Pupils: Pupils are equal, round, and reactive to light. Cardiovascular: Rate and Rhythm: Regular rhythm. Tachycardia present. Pulses: Normal pulses. Heart sounds: Normal heart sounds. No murmur heard. Pulmonary: Effort: Pulmonary effort is normal. No tachypnea or respiratory distress. Breath sounds: Normal breath sounds. No stridor. No decreased breath sounds, wheezing, rhonchi or rales. Chest: Chest wall: No tenderness. Abdominal: General: Bowel sounds are normal. There is no distension. Palpations: Abdomen is soft. Tenderness: There is no abdominal tenderness. There is no guarding or rebound. Musculoskeletal: General: No deformity. Normal range of motion. Cervical back: Normal range of motion and neck supple. Right lower leg: No edema. Left lower leg: No edema. Skin: General: Skin is warm and dry. Capillary Refill: Capillary refill takes less than 2 seconds. Coloration: Skin is not cyanotic, jaundiced or pale. Neurological: General: No focal deficit present. Mental Status: He is alert and oriented to person, place, and time. GCS: GCS eye subscore is 4. GCS verbal subscore is 5. GCS motor subscore is 6. Cranial Nerves: No cranial nerve deficit, dysarthria or facial asymmetry. Sensory: No sensory deficit. Psychiatric: Mood and Affect: Mood normal. Speech: Speech normal. Behavior: Behavior normal. NIH: IMAGING: No orders to display LABS: No results found for this visit on 06/30/22. No orders to display A/P and MDM: Assessment: Bryan Clifford is a 76 y.o. male presenting with period of unresponsiveness that resolved within a few minutes . During this period patient did not shake, he was awake, but just not responding per chart review per . Patient does not remember the event, first thing he remembers is EMS coming to the scene. Differential Diagnosis includes but is not limited to ischemic stroke, hemorrhagic stroke, TIA, metabolic abnormalities, intracranial mass (malignancy, met, other), migraine, seizure, bells palsy, conversion disorder vs other unknown etiology. BP goal <220/120 (no tPA) BG goal 100-200 Disposition: Patient will be admitted to [facility] for TIA workup and EEG. Neurovasc following. This patient was discussed with the attending physician who was in the immediate care area during the evaluation and decision making process. A [id number] dictation tool was used in the production of this document and all attempts were made for proper editing but errors may occur. Dave Waggoner M.D Emergency Medicine, PGY-2 Lucy Waggoner MD Resident 06/30/22 [id number] documented [facility] encounter[facility]22 NoteAcute Coronary Syndrome (ACS): Initial Evaluation and Management: [email or web address] [facility]08-[facility] Emergency department Note* PHILIPP Ramey - 06/30/2022 4:02 PM EDT SW responded to Stroke Alert transferred from [facility] transported by [facility]. Per EMS, patient's (Africa Clifford [phone]) and patient's daughter are en route to this ED. SW to remain available as needed. EMANUEL Berg, [place], [facility] [employer], Emergency Department [phone] [facility]08-25-[facility] Emergency department Note* Angela Lizarraga RN - 06/30/2022 3:58 PM EDT Patient arrives from [facility]. Patient had an episode of confusion, brought to [place] by EMS. Patient had a CT at OSH which did not reveal a stroke. Patient being [facility] for [facility] evaluation. For EMS patient has good strength in all extremities, is A&O x 4. BG 194. Per EMS, no deficits at this time. Time of episode of altered mental status happened around 0800 this morning. [facility]08[facility] Emergency department Note* Angela Lizarraga RN - 06/30/2022 3:58 PM EDT Bed: E035 Expected date: 06/30/22 Expected time: 3:45 PM Means of arrival: Private Ambulance Comments: [facility]08-25-[facility]22 Physician Emergency department Note* Lucy Waggoner MD - 06/30/2022 3:53 PM EDT EMERGENCY DEPARTMENT ENCOUNTER S: CHIEF COMPLAINT: No chief complaint on file. HPI: Bryan Clifford is a 76 y.o. male with history of HTN, HLD and DM2 who presents as a transfer from an outside hospital as a level A stroke alert. LKW was 0800. Patient was driving with when he stopped responding to her. She had to push the break to get the car to stop. By the time he arrived to the OSH, symptoms had resolved. NIH 0. Transfer by ground for neurology consultation. NIH 0 on arrival REVIEW OF SYSTEMS: Negative aside from what is in HPI. Review of all systems performed. PAST MEDICAL HISTORY No past medical history on file. SURGICAL HISTORY No past surgical history on file. CURRENT MEDICATIONS No current outpatient medications on file. ALLERGIES Not on File FAMILY HISTORY No family history on file. SOCIAL HISTORY Social History Socioeconomic History Marital status: Not on file Spouse name: Not on file Number of children: Not on file Years of education: Not on file Highest education level: Not on file Occupational History Not on file Tobacco Use Smoking status: Not on file Smokeless tobacco: Not on file Substance and Sexual Activity Alcohol use: Not on file Drug use: Not on file Sexual activity: Not on file Other Topics Concern Not on file Social History Narrative Not on file Social Determinants of Health Financial Resource Strain: Not on file Food Insecurity: Not on file Transportation Needs: Not on file Physical Activity: Not on file Stress: Not on file Social Connections: Not on file Intimate Partner Violence: Not on file Housing Stability: Not on file O: PHYSICAL EXAM: Vital Signs:There were no vitals taken for this visit. Physical Exam Vitals and nursing note reviewed. Constitutional: General: He is not in acute distress. Appearance: Normal appearance. He is well-developed and normal weight. He is not ill-appearing, toxic-appearing or diaphoretic. HENT: Head: Normocephalic and atraumatic. Nose: Nose normal. No congestion or rhinorrhea. Mouth/Throat: Mouth: Mucous membranes are moist. Eyes: General: No visual field deficit or scleral icterus. Extraocular Movements: Extraocular movements intact. Conjunctiva/sclera: Conjunctivae normal. Pupils: Pupils are equal, round, and reactive to light. Cardiovascular: Rate and Rhythm: Regular rhythm. Tachycardia present. Pulses: Normal pulses. Heart sounds: Normal heart sounds. No murmur heard. Pulmonary: Effort: Pulmonary effort is normal. No tachypnea or respiratory distress. Breath sounds: Normal breath sounds. No stridor. No decreased breath sounds, wheezing, rhonchi or rales. Chest: Chest wall: No tenderness. Abdominal: General: Bowel sounds are normal. There is no distension. Palpations: Abdomen is soft. Tenderness: There is no abdominal tenderness. There is no guarding or rebound. Musculoskeletal: General: No deformity. Normal range of motion. Cervical back: Normal range of motion and neck supple. Right lower leg: No edema. Left lower leg: No edema. Skin: General: Skin is warm and dry. Capillary Refill: Capillary refill takes less than 2 seconds. Coloration: Skin is not cyanotic, jaundiced or pale. Neurological: General: No focal deficit present. Mental Status: He is alert and oriented to person, place, and time. GCS: GCS eye subscore is 4. GCS verbal subscore is 5. GCS motor subscore is 6. Cranial Nerves: No cranial nerve deficit, dysarthria or facial asymmetry. Sensory: No sensory deficit. Psychiatric: Mood and Affect: Mood normal. Speech: Speech normal. Behavior: Behavior normal. NIH: IMAGING: No orders to display LABS: No results found for this visit on 06/30/22. No orders to display A/P and MDM: Assessment: Bryan Clifford is a 76 y.o. male presenting with period of unresponsiveness that resolved within a few minutes . During this period patient did not shake, he was awake, but just not responding per chart review per . Patient does not remember the event, first thing he remembers is EMS coming to the scene. Differential Diagnosis includes but is not limited to ischemic stroke, hemorrhagic stroke, TIA, metabolic abnormalities, intracranial mass (malignancy, met, other), migraine, seizure, bells palsy, conversion disorder vs other unknown etiology. BP goal <220/120 (no tPA) BG goal 100-200 Disposition: Patient will be admitted to [facility] for TIA workup and EEG. Neurovasc following. This patient was discussed with the attending physician who was in the immediate care area during the evaluation and decision making process. A [id number]-xl-[id number] dictation tool was used in the production of this document and all attempts were made for proper editing but errors may occur. Dave Waggoner M.D Emergency Medicine, PGY-2 Lucy Waggoner MD Resident 06/30/22 2320 [facility] Work Phone: [phone] 449-412008-25-2022 Consult note* Mere Oswald MD - 06/30/2022 3:51 PM EDT Neurovascular Evaluation Note Evaluation Date: 06/30/2022 Unit: E035/E035 Consultation was requested by Dr. Angus Birmingham MD Patient status: Emergency Length of stay: 0 days Reason for Consult/Chief Complaint Concern for TIA vs stroke History of Present Illness Bryan Clifford is a 76 y.o. male with PMH significant for HTN, T2DM who presents with unresponsiveness. A stroke alert was called for STAT consultation. Patient was driving with his and he suddenly stopped talk to her. LKW 0800. Patient was awake,just not responding. She has to put her foot on the break to stop the car. By the time he got to the ED symptoms were gone. Her reportedly took over the car's control and called EMS. His symptoms were resolved by the time EMS arrived to the scene. He doesn't report any headache, numbness, weakness, tingling, dizziness, vision changes. He doesn't have any history of prior TIA, stroke, seizures, bleeding or clotting disorders or cancer. There is no family history of stroke, seizures or bleeding or clotting disorders. Review of Systems A complete review of systems was negative except for: Neurologic: positive for confusion Neurovascular-specific History / Information Home antiplatelet/anticoagulation therapy: Antiplatelet therapy: Aspirin 81mg. Patient Current Risk Factors: Stroke risk factors include hypertension or diabetes mellitus. Prior stroke history: no. Family Hx of Stroke: Parents: no Siblings: no Stroke Diagnostic/Treatment Eligibility Information Not in the window for tPA. Time to tPA delayed due to: N/A Stroke Clinical Assessment Information: NIHSS (Provider) Flowsheet Row First Filed Value Provider NIH Stroke Scale NIH Interval (Provider) admission filed on 06/30/2022 1611 NIH Level of Conciousness (Provider) 0 filed on 06/30/2022 1611 NIH LOC Questions (Provider) 0 filed on 06/30/2022 1611 NIH LOC Commands (Provider) 0 filed on 06/30/2022 1611 NIH Best Gaze (Provider) 0 filed on 06/30/2022 1611 NIH Visual (Provider) 0 filed on 06/30/2022 1611 NIH Facial Palsy (Provider) 0 filed on 06/30/2022 1611 NIH Left Arm Motor (Provider) 0 filed on 06/30/2022 1611 NIH Right Arm Motor (Provider) 0 filed on 06/30/2022 1611 NIH Left Leg Motor (Provider) 0 filed on 06/30/2022 1611 NIH Right Leg Motor (Provider) 0 filed on 06/30/2022 1611 NIH Limb Ataxia (Provider) 0 filed on 06/30/2022 1611 NIH Sensory (Provider) 0 filed on 06/30/2022 1611 NIH Best Language (Provider) 0 filed on 06/30/2022 1611 NIH Dysarthria (Provider) 0 filed on 06/30/2022 1611 NIH Extinction and Inattention (Provider) 0 filed on 06/30/2022 1611 NIH Total Score (Provider) 0 filed on 06/30/2022 1611 Is NIH=0 Within 180 min of Last Known Well Time? -- Stroke Scales Flowsheet Row Most Recent Value NIH Total Score (Provider) 0 filed on 06/30/2022 1611 Past Medical History Medical History: No past medical history on file. SURGICAL HISTORY: No past surgical history on file. SOCIAL HISTORY: Medications PRIOR TO ARRIVAL MEDS: Prior to Admission medications Not on File Current Meds: Current Facility Administered Meds: Current Facility-Administered Medications Medication Dose Route Frequency Provider Last Rate Last Admin hydrALAZINE (APRESOLINE) injection 10 mg 10 mg Intravenous Q10 MIN PRN Lucy Waggoner MD labetalol (NORMODYNE) injection 20 mg 20 mg Intravenous Q10 MIN PRN Lucy Waggoner MD sodium chloride 0.9% IV solution Intravenous Continuous Lucy Waggoner MD 75 mL/hr at 06/30/22 1620 New Bag at 06/30/22 1620 No current outpatient medications on file. Scheduled Meds: Continuous Infusions: PRN Meds: Vitals Objective Findings: Vital Signs (24hrs): Pulse (Heart Rate): [99-108] 99 Resp Rate: [16] 16 BP: (154)/(84) 154/84 O2 Sat (%): [96 %] 96 % Weight: [95.6 kg (210 lb 12.2 oz)] 95.6 kg (210 lb 12.2 oz) There is no height or weight on file to calculate BMI. Lines/Drains/Airways/Wounds: Patient Lines/Drains/Airways Status Active Lines, Drains, Airways, & Wound Overview Name Placement date Placement time Site Days Peripheral IV Line - Single Lumen 06/30/221621 median cubital vein (antecubital fossa), left 06/30/22 162 -- less than 1 Physical Exam General: Laying comfortably in bed; in no acute distress. CV: RRR. Pulmonary: No increased work of breathing, equal chest rise bilaterally, no audible wheezing. Abdomen: soft, non-tender Ext: No cyanosis, edema, or deformity Skin: No rash Neurological Examination Psych and Mental status: alert; oriented to person, place, year, and month; good attention Speech/language: fluent; comprehension intact; object naming intact; repetition intact Cranial nerves: CN II visual hou full to confrontation without visual extinction CN III, IV, PERRL. EOMI. CN V facial sensation intact to light touch bilaterally in V1, V2, V3 CN VII face, smile, eyebrow raise/closure symmetric CN VIII hearing grossly intact to voice CN IX & X soft palate elevates symmetrically in the midline, no dysarthria CN XI shoulder shrug full strength bilaterally CNXII tongue protrudes midline Motor: Normal bulk and tone. Right Arm: no drift Left Arm: no drift Right Leg: no drift Left Leg: no drift Reflexes: Intact and 2+ throughout. Coordination: [id number] intact bilaterally. Rapid alternating movements are normal. Sensation: intact to light touch throughout without extinction. Laboratory Results Diagnostics/Procedures: Labs-CBC WBC/Hgb/Hct/Plts: 10.00/14.6/43.1/276 (06/30 1608) Labs-Chem 7([facility]) Bun/Creat/Cl/CO2/Glucose: --/--/--/--/191 (06/30 160) Labs-Coags Additional Labs No results found for: CHOLESTEROL, TRIG, HDL, LDLCALC, LDLDIRECT Labs-Hemoglobin A1C No results found for: HGBA1C Imaging Imaging was analyzed by [facility]ang, No LVO CT Stroke Head:No bleeding or infarct. CTA Brain/Neck: No LVO on my read. Assessment/Impression Bryan Clifford is a 76 y.o. male with PMH significant for HTN, T2DM who presents with unresponsiveness. Differential diagnosis includes TIA, seizure, toxic or metabolic etiologies. NIH was 0 on my exam. He doesn't have any focal neurological deficits on exam. His CTH and CTA werenegative for any bleed, LVO. Plan -Please admit to CDU for TIA evaluation and work-up -Swallow evaluation prior to any oral intake -Blood pressure goal SBP <220 mmHg and DBP <110 mmHg -Aspirin 81 mg orally or Aspirin 300 mg rectally -Routine EEG -Recommend a MRI Brain without contrast -Recommend TTE, Lipid panel, HgbA1c, LFT -PT, OT and Speech therapy evaluation if patient continues to have symptoms -Continuous telemetry, obtain EKG Code Status: No Order DVT prophylaxis: SCDs Diet: DIET NPO WITHOUT meds Patient and plan discussed with neurovascular attending, Dr. Madera. Signed, M Miguel Oswald MD PGY-4 [facility] Diagnosis TIA (transient ischemic attack) Unspecified transient cerebral ischemia AMS (altered mental status) Syncope Syncope and collapse documented in this encounter [facility] Diagnosis Biceps tendinitis of right upper extremity- Primary [facility] Diagnosis Biceps tendinitis of right upper extremity- Primary documented in this encounter [facility] Summary Purpose Family History No Family History Records FoundNo Family History Records FoundNo Family History Records FoundNo Family History Records FoundNo Family History Records FoundNo Family History Records FoundNo Family History Records FoundNo Family History Records Found Advance Directives No Advanced Directives Records FoundNo Advanced Directives Records FoundNo Advanced Directives Records FoundNo Advanced Directives Records FoundNo Advanced Directives Records FoundNo Advanced Directives Records FoundNo Advanced Directives Records FoundNo Advanced Directives Records Found Additional Source Comments (unrecognized sect ion and content) No Status Records FoundNo Status Records FoundNo Status Records FoundNo Status Records FoundNo Status Records FoundNo Status Records FoundNo Status Records FoundNo Status Records Found INFORMATION SOURCE (unrecogn ized section and content) DATE CREATED AUTHOR AUTHOR'S ORGANIZ ATION 08/06/2021 [facility] DATE CREATED AUTHOR AUTHOR'S ORGANIZ ATION 10/20/2021 [facility] DATE CREATED AUTHOR AUTHOR'S ORGANIZ ATION 07/05/2022 [facility] DATE CREATED AUTHOR AUTHOR'S ORGANIZ ATION 12/28/2022 [facility] DATE CREATED AUTHOR AUTHOR'S ORGANIZ ATION 12/29/2022 [facility] DATE CREATED AUTHOR AUTHOR'S ORGANIZ ATION 10/22/2023 [facility] DATE CREATED AUTHOR AUTHOR'S ORGANIZ ATION 11/03/2023 [facility] Reason for Visit (unrecogniz ed section and content) Specialty Diagnoses / Procedures Referred By Nettie t Referred To Contact Diagnoses Level A Stroke Alert Jose Madera MD [address] [place] [address] [facility] [address] [place] [address] Referral ID Status Reason Start Date Expiration Date Visits Re quested Visits Authorized [id number] 1 1 Scheduled Active and Recently Administ ered Medications (unrecognized section and content) Continuous Medication Order 06/29/2022 06/30/2022 07/01/2022 sodium chloride 0.9% IV solution Intravenous, at 75 mL/hr, CONTINUOUS, Starting on Mon06/30/22 at 1600, Until Mon07/01/22 at 1830 1620 ($$New Bag$$ - Provider: Sheba Golden RN)2346 ($$New Bag$$ - Provider: Luis Enrique Vazquez RN) 0055 (Rate/Dose Verify - Provider: Luis Enrique Vazquez RN)0149 (Rate/Dose Verify - Provider: Luis Enrique Vazquez RN)0151 (Rate/Dose Verify - Provider: Luis Enrique Vazquez RN)0342 (Rate/Dose Verify - Provider: Luis Enrique Vazquez RN)0535 (Rate/Dose Verify - Provider: Luis Enrique Vazquez RN)0923 (Rate/Dose Verify - Provider: Frieda Castaneda, RN)155 (Stopped - Provider: Frieda Castaneda RN) PRN Medication Order 06/29/2022 06/30/2022 07/01/2022 acetaminophen (TYLENOL) tablet 650 mg 650 mg, Oral, EVERY 6 HOURS NEEDED, Starting on Danni 06/30/22 at 2121, Until Mon07/01/22 at 1830, Mild Pain, Oral temp > 100.4 F, Do not administer unless Dysphagia Screen has been documented as passed; or if liver disease, or elevated Liver Function Tests. alum/mag hydrox.-simethicone oral suspension 30 mL 30 mL, Oral, EVERY 6 HOURS NEEDED, Starting on Danni 06/30/22 at 2121, Until Mon07/01/22 at 1830, Indigestion, Per 5 mL is equivalent to: (Alum-Mag Hydroxide 200-225 mg and Simethicone 20 mg) and (Alum-Mag Hydroxide 200-200 mg and Simethicone 20 mg) hydrALAZINE (APRESOLINE) injection 10 mg 10 mg, Intravenous, EVERY 10 MINUTES NEEDED, 3 doses, Starting on Danni 06/30/22 at 1555, Until Mon07/01/22 at 1830, Administer for systolic blood pressure greater than 220 OR diastolic blood pressure greater than 120. HOLD if heart rate greater than 60. labetalol (NORMODYNE) injection 20 mg 20 mg, Intravenous, EVERY 10 MINUTES NEEDED, 3 doses, Starting on Danni 06/30/22 at 1555, Until Mon07/01/22 at 1830, Administer for systolic blood pressure greater than 220 OR diastolic blood pressure greater than 120. HOLD if heart rate less than 60., Administration duration: up to 20 mg over 2 minutes. Telemetry required except for ASSISTANT CUSTOMER SERVICE MANAGER patients on [address]ax Floors 6 and 7. For vials: labetalol should be treated as a SINGLE USE VIAL. Discard remaining contents after one use. ondansetron (ZOFRAN) tablet 4 mg(Linked Group 1) 4 mg, Oral, EVERY 4 HOURS NEEDED, Starting on Danni 06/30/22 at 2121, Until Mon07/01/22 at 1830, Nausea / Vomiting ondansetron 4mg/2ml (ZOFRAN) injection 4 mg(Linked Group 1) 4 mg, Intravenous, EVERY 4 HOURS NEEDED, Starting on Danni 06/30/22 at 2121, Until Mon07/01/22 at 1830, Nausea / Vomiting sodium chloride (PF) 0.9 % injection 1-100 mL (COMPLETED) 1-100 mL, Intravenous, ONCE NEEDED, 1 dose, Starting on Danni 06/30/22 at 1640, Until Danni 06/30/22 at 2359, Flush, CT Procedure 1644 (Given - Provider: Feng Garcia) Linked Groups Order Group 1: ondansetron 4mg/2ml (ZOFRAN) injection 4 mgJump to med 4 mg, Intravenous, EVERY 4 HOURS NEEDED, Starting on Danni 06/30/22 at 2121, Until Mon07/01/22 at 1830, Nausea / Vomiting Or ondansetron (ZOFRAN) tablet 4 mgJump to med 4 mg, Oral, EVERY 4 HOURS NEEDED, Starting on Danni 06/30/22 at 2121, Until Mon07/01/22 at 1830, Nausea / Vomiting Care Teams (unrecognized sec tion and content) Lost Charge Card Clerk Relationship Specialty Start Date End Date Eloina Jacobsen MD [address] [place], [place] [id number] PCP - General Family Medicine 10/21/22 Lost Charge Card Clerk Relationship Specialty Start Date End Date Eloina Jacobsen MD [address] [place] [address] PCP - General Family Medicine 10/21/22 Letha Pelletier MD [address] [place] [address] Consulting Physician Rheumatology 12/30/22 FOR RECORDS PERTAINING TO PATIENTS WHO ARE OR HAVE BEEN ENROLLED IN A CHEMICAL DEPENDENCY/SUBSTANCEABUSE PROGRAM, SOME INFORMATION MAY BE OMITTED. This clinical summary was aggregated from multiple sources. Caution should be exercised in using it in the provision of clinical care. This summary normalizes information from multiple sources, and as a consequence, information in this document may materially change the coding, format and clinical context of patient data. In addition, data may be omitted in some cases. CLINICAL DECISIONS SHOULD BE BASED ON THE PRIMARY CLINICAL RECORDS. [facility]. provides no warranty or guarantee of the accuracy or completeness of information in this document.
== END 2023-12-16 11:04 | disposition home or self-care (01) ==
LOC: ED 10:57
PROVIDERS: Emergency Provider Emergency Medicine; PCP Family Medicine; Visit Provider Emergency Medicine
DX: M54.32 Sciatica, left side (principal); E11.9 Type 2 diabetes mellitus without complications; Z79.84 Long term (current) use of oral hypoglycemic drugs; I10 Essential (primary) hypertension
CPT/HCPCS: 99282

== ENCOUNTER → 2024-03-06 | Outpatient (CLI) | payer MEDICARE, SELFPAY ==
[2024-03-06 17:18] LABS: Amphetamine Urine VISTA NEGATIVE (<1000 ng/mL); Barbiturate Urine VISTA NEGATIVE (< 200 ng/mL); Benzodiazepine Urine VISTA NEGATIVE (< 200 ng/mL); Cocaine Urine VISTA NEGATIVE (< 300 ng/mL); Ecstacy Urine VISTA NEGATIVE (< 500 ng/mL); Methadone Urine VISTA NEGATIVE (< 300 ng/mL); PCP Urine VISTA NEGATIVE (< 25 ng/mL); THC Urine VISTA NEGATIVE (< 50 ng/mL); Vista UDS pH Range 6
== END | disposition home or self-care (01) ==
LOC: LAB 16:22
PROVIDERS: PCP Family Medicine; Referring Provider Anesthesiology Pain Medicine; Visit Provider Anesthesiology Pain Medicine
DX: F11.20 Opioid dependence, uncomplicated (principal)
CPT/HCPCS: 36415; 80307

== ENCOUNTER → 2024-04-23 | Outpatient (CLI) | payer MEDICARE, SELFPAY ==
[2024-04-23 15:11] LABS: Microalbumin,Random Urine 30.5 mg/L (NO RANGE EST.); Microalbumin:Creatinine Ratio 12.8 mg/g CRE (<30 mg/g CRE)
[2024-04-23 15:16] LABS: Hemoglobin A1c 6.6 % (3.8-5.6)
== END | disposition home or self-care (01) ==
LOC: LAB 13:53
PROVIDERS: PCP Family Medicine; Referring Provider Family Medicine; Visit Provider Family Medicine
DX: E11.40 Type 2 diabetes mellitus with diabetic neuropathy, unspecified (principal)
CPT/HCPCS: 36415; 82043; 82570; 83036

== ENCOUNTER → 2024-04-25 | Outpatient (CLI) | payer MEDICARE, SELFPAY ==
--- NOTE | 2024-04-25 13:41 | EKG12_ITS ---
Test Reason : ECTOPIC BEATS Blood Pressure : / mmHG Vent. Rate : 101 BPM Atrial Rate : 101 BPM P-R Int : 118 ms QRS Dur : 090 ms QT Int : 350 ms P-R-T Axes : 056 042 048 degrees QTc Int : 453 ms Sinus tachycardia Otherwise normal ECG Confirmed by Angus Castillo ([id number]), order editor AURORA MARIE ([id number]) on 04/29/2024 9:01:20 AM Referred By: Gold Barcenas Confirmed By:Angus Castillo
== END | disposition home or self-care (01) ==
LOC: PSN 13:26
PROVIDERS: PCP Family Medicine; Referring Provider Family Medicine; Visit Provider Family Medicine
DX: I49.9 Cardiac arrhythmia, unspecified (principal)
CPT/HCPCS: 93005

== ENCOUNTER → 2024-05-15 | Outpatient (CLI) | payer MEDICARE, SELFPAY ==
--- NOTE | 2024-05-15 09:38 | CDU_ITS ---
Reason For Study: visual loss Rt. Velocities/BP Lt. Velocities/BP Prox CCA 61.7/12.6 cm/sec. Prox CCA 81.6 cm/sec. Mid CCA 65.5/15.4 cm/sec. Mid CCA 60.7/15.4 cm/sec. Dist CCA 67.4/14.5 cm/sec. Dist CCA 57.2/14.5 cm/sec. Prox ICA 40.0/9.7 cm/sec. Prox ICA 40.1/11.9 cm/sec. Mid ICA 62.1/19.4 cm/sec. Mid ICA 68.0/23.2 cm/sec. Dist ICA 50.0/18.8 cm/sec. Dist ICA 53.1/16.8 cm/sec. Rt. ICA/CCA = .94. Lt. ICA/CCA = 1.1. Prox ECA 66.4/10.7 cm/sec. Prox ECA 63.3/6.6 cm/sec. Rt. Vert. 34.6/10.9 cm/sec. Lt. Vert. 20.3/5.4 cm/sec. Right Extracranial There is no significant atherosclerotic plaque noted in the right common carotid artery. There is heterogeneous, irregular atherosclerotic plaque noted in the right internal carotid artery. There is heterogeneous, irregular atherosclerotic plaque noted in the right external carotid artery. Antegrade flow is noted in the right vertebral artery. Left Extracranial There is heterogeneous, irregular atherosclerotic plaque noted in the left common carotid artery. There is heterogeneous, irregular atherosclerotic plaque noted in the left internal carotid artery. There is heterogeneous, irregular atherosclerotic plaque noted in the left external carotid artery. Antegrade flow is noted in the left vertebral artery. VL/Carotid Duplex Ultrasound Interpretation Summary Mild (<50%) stenosis right extracranial internal carotid. Mild (<50%) stenosis left extracranial internal carotid. Patent and antegrade vertebrals bilaterally. Ordering Physician: Deena Barcenas Referring Physician: Deena Barcenas Performed By: Phuong Roberts RVT
== END | disposition home or self-care (01) ==
LOC: CVS 09:37
PROVIDERS: PCP Family Medicine; Referring Provider Family Medicine; Visit Provider Family Medicine
DX: H53.121 Transient visual loss, right eye (principal)
CPT/HCPCS: 93880

== ENCOUNTER 2024-05-28 06:09 | Day surgery (SDC) | payer MEDICARE, SELFPAY ==
[2024-05-28] VITALS (7 sets, daily range): BP systolic 106–133; BP diastolic 75–93; PULSE 89–115; RESP 16–18; TEMP 36.1–36.3; O2SAT 96–98; BMI 26.4
--- NOTE | 2024-05-28 06:33 | HP.PCM_ITS ---
History and Physical Date of Admission: 05/28/24 Intake Vital Signs 12/16/2408:52 04/04/2413:19 Height 6 ft 1 in 6 ft 1 in Weight: 207 lb 6 oz BMI 27.3 BP 123/84 H Blood Pressure Location Rt brachial Position Sitting Respiration 18 Pulse 98 Pulse Source Monitor Temp 97.3 F L Temp Source Temporal Pulse Oximetry (%) 96 Oxygen Delivery Method room air Intake Visit Reasons: POSITIVE COLOGUARD Chief Complaint: positive cologuard Accompanied by: Is patient in pain?: No Allergies No Known Allergies Allergy (Verified 04/04/24 13:20) PFS Social History (Updated 04/04/24 @ 13:19 by Bhavna Sprague LPN) Smoking Status: Unknown if ever smoked alcohol intake: never substance use type: does not use HPI HPI HPI: Patient is a 78-year-old male with positive Cologuard. He says his last colonoscopy was over 10 years ago and was normal. His Cologuard was positive and he denies any abdominal pain or blood in the stool or family history of colon cancer. ROS General General: No weight change, appetite, fatigue, colon cancer, breast cancer or weakness HEENT HEENT: No difficulty swallowing, eye injury, eye surgery, swollen glands or hoarseness Endo Endocrine: Yes diabetes mellitus; No thyroid disease, thyroid cancer, Hair loss, heat intolerance or cold intolerance Skin Skin: No rash or changing moles Musc Musculoskeletal: Yes back problems and arthritis; No rheumatoid arthritis, gout or joint pain Cardio Cardiovascular: Yes high blood pressure; No murmur, pacemaker, heart disease, atrial fibrillation, heart attack, heart stent, palpitations, shortness of breat with exertion or chest pain Psych Psychiatric: No depression, anxiety or hearing voices Resp Respiratory: No shortness of breath, Yes sleep apnea, No cough, No COPD, No asthma, No emphysema and No wheezing Gastro Gastrointestinal: No abdominal pain, No nausea or vomiting, No diarrhea, No constipation, No blood in stool, Yes acid reflux, Yes hemorrhoids, No ulcers, No gallbladder problem and No black,tarry stools Lenin Hematologic: No blood thinners, No blood disorders, No bleeding, No anemia and No blood clots Neuro Neurologic: No numbness, No tingling and No weakness Exam Const General: cooperative Orientation: alert and oriented x3 HENMT Head: normal to inspection Neck Neck: normal visual inspection and full ROM Chest Chest palpation & inspection: normal inspection of the chest Resp Effort & Inspection: normal respiratory effort Auscultation: clear to auscultation bilaterally Cardio Rate: regular rate Rhythm: regular rhythm GI Inspection: non-distended Palpation: soft and nontender Skin General: no rashes or lesions noted Neuro General: patient alert and patient oriented x3 Extrem General: full ROM Psych Appearance: grossly normal Mental Status: mental status grossly normal Assessment and Plan Assessment and Plan (1) Positive colorectal cancer screening using Cologuard test: Status: Acute Plan: I explained endoscopy in detail to the patient. I explained the risks including but not limited to stroke or heart attack with anesthesia, perforation of the GI tract, bleeding, infection. I explained that any of these could necessitate further emergency surgery. The patient understands and all questions were answered sufficiently. The patient wishes to proceed with procedure. Shayan Krishnamurthy MD Pager: [facility] [address] [place] [address] [address] [place] [address] Office: I have examined the patient and the H&P has been reviewed. There are no clinical changes since date of exam.
--- NOTE | 2024-05-28 07:07 | PCM.PRE.AN2 ---
ASA Classification* ASA Classification ASA Classification: 3 Assessment & Plan Anesthesia* Anesthesia Assessment Anesthesia Assessment: Discussed sedation and/or anesthesia options, risks, benefits, and alternatives with patient/parents/legal guardian/POA. Questions invited. The patient/parents/legal guardian/POA seems to understand and agrees to proceed with anesthesia plan. Reviewed the physical assessment, medical history, allergy history and patient home medications list prior to surgery/procedure/anesthetic and documented any changes. Performed airway and anesthesia risk assessments. Anesthesia Type Anesthesia Type: MAC Anesthesia Focused Assessment* Temperature: 97.4 F Pulse Rate: 115 Blood Pressure: 133/93 Respiratory Rate: 16 Pulse Ox: 97 Airway Assessment Mouth opens: >3 cm Mallampati Score: II Focused Labs Anesthesia Preop lab: CBC WBC 6.3 K/mm3 (4.4-11.0) 08/26/21 13:50 RBC 4.94 M/mm3 (4.6-6.2) 08/26/21 13:50 Hgb 14.7 g/dL (13.0-16.5) 08/26/21 13:50 Hct 44.0 % (40-54) 08/26/21 13:50 Plt Count 282 K/mm3 (150-450) 08/26/21 13:50 CHEMISTRY Potassium 3.7 mmol/L (3.5-5.1) 08/26/21 13:50 Sodium 137 mmol/L (136-145) 08/26/21 13:50 BUN 11 mg/dL (7-18) 08/26/21 13:50 Creatinine 1.11 mg/dL (0.70-1.30) 08/26/21 13:50 Glucose 168 mg/dL (74-106) H 08/26/21 13:50 COAG Pre-Assessment Diagnosis/Proposed Procedure Planned Operative Procedure(s): COLONOSCOPY Anesthesia History 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 When Was Last Pacemaker Check QUESTION #4 FULL TEXT: You/Your Family Experience fever (hyperthermia) with Anesthesia Last Oral Intake Last Oral intake: Last Oral Intake NPO since 18:00 05/28/24 06:55 Meds taken in AM with sips of water? Meds patient instructed to take am of surgery PONV PONV - refinery operator alkylation: PONV - refinery operator alkylation Female No 04/15/24 13:31 HX of Motion Sickness No 04/15/24 13:31 HX of N/V After Surgery No 04/15/24 13:31 Non-Smoker Yes 04/15/24 13:31 Duration of Surgery greater No 04/15/24 13:31 than 60 minutes Number of Risk Factors 1 04/15/24 13:31 PONV Score Low Risk 04/15/24 13:31 Height & Weight Height & Weight: Anesthesia: Height & Weight Height 6 ft 1.5 in 05/28/24 06:55 Weight: 92.079 kg 05/28/24 06:55 Body Mass Index (BMI) 26.4 05/28/24 06:55 Respiratory Assessment Respiratory Assessment - refinery operator alkylation: Respiratory Tract Infection Hx - refinery operator alkylation Hx Respiratory Tract Infection No 04/15/24 13:31 STOP Sleep Apnea STOP Sleep Apnea - refinery operator alkylation: STOP Sleep Apnea - refinery operator alkylation Hx Hypertension Yes: PER PT, CONTROLLED ON 04/15/24 13:31 MEDS Hx Sleep Apnea Yes 04/15/24 13:31 CPAP Yes 04/15/24 13:31 BIPAP No 04/15/24 13:31 Do you snore loudly (louder than talking or can be heard Do you often feel tired/ fatigued/ sleepy during daytime? Has anyone observed you stop breathing during sleep? STOP Results Positive 04/15/24 13:31 QUESTION #5 FULL TEXT : Do you snore loudly (louder than talking or can be heard through closed doors)? 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 Specify any problems Hx of Preganancy in last 3 N/A 04/15/24 13:31 Months Nurse Filling Out Transfusion MGRIFFITH 04/15/24 13:31 & Questions: Date: 04/15/24 04/15/24 13:31 Time: 13:33 04/15/24 13:31 Patient unable to answer at this time (ie. confused, unrespo /Reproduction History /Reproductive History - refinery operator alkylation: /Reproductive Hx- refinery operator alkylation Hx Now Gestational Age (in weeks): EDC: Hx Hx Para Hx Section SAB Active Medications Active Medications: Current Medications Generic Name Dose Route Start Last Admin Trade Name Freq PRN Reason Stop Dose Admin Lactated Ringer's 1,000 mls @ 15 mls/hr 05/28/24 07:00 IV .Q48H ODALYS PFSH Medical History Back pain Wears glasses Cancer Arthritis Diabetes High cholesterol Heartburn Sleep apnea CPAP (continuous positive airway pressure) dependence Non-smoker Hypertension History of stress test History of atrial fibrillation Home Medications ?Medication ?Instructions ?Recorded ?Last Taken ?Type atorvastatin 10 mg tablet 10 mg PO QDAY 04/04/24 05/27/24 History buspirone 15 mg tablet 15 mg PO BID 04/04/24 05/27/24 History gabapentin 100 mg capsule 100 mg PO TID PRN pain 04/04/24 Unknown History glipizide 10 mg tablet 10 mg PO BID 04/04/24 05/27/24 History hydrochlorothiazide 25 mg tablet 25 mg PO QDAY 04/04/24 05/27/24 History losartan 100 mg tablet 100 mg PO QDAY 04/04/24 05/27/24 History meloxicam 15 mg tablet 15 mg PO QDAY 04/04/24 05/27/24 History metformin 1,000 mg tablet 1,000 mg PO BID 04/04/24 05/27/24 History metoprolol succinate 25 mg 25 mg PO QDAY 04/04/24 05/27/24 History tablet,extended release 24 hr tamsulosin 0.4 mg capsule 0.4 mg PO QDAY 04/04/24 05/27/24 History hydrocodone-acetaminophen 5-325mg 1 tab PO BID 05/28/24 05/27/24 History 5mg-325mg Allergy/AdvReac Type Severity Reaction Status Date / Time No Known Allergies Allergy Verified 05/28/24 06:45 Surgical History History of colonoscopy History of back surgery Social History Smoking Status: Never smoker alcohol intake: never substance use type: does not use Review of Systems (Anesthesia) ROS Narrative System reviewed and no additional complaints, except as documented.
[2024-05-28] MEDS: Lactated Ringers 1,000 ML 15 ML IV (07:11)
--- NOTE | 2024-05-28 07:30 | COLBX_PTH ---
PATIENT: MITZI CLIFFORD LOC: EN U#:[id number] AGE/SX: 78/M ROOM: RE05/28/[address]: Dr. Shayan Krishnamurthy MD : 1945 BED: DIS: 05/28/2024 SPEC #: [id number] RECD: 05/28/24 11:12 STATUS: DEEDEE SAMANIEGO #: [id number] MERARY: 05/28/24 07:[address]: Shayan Krishnamurthy DEPT: SURGICAL PATHOLOGY RECD BY: Domi Pepe ENTERED: 05/28/24 12:33 SP TYPE: COLON BX OTHR DR: Dr. Deena Barcenas MD Tissues: Cecum, NOS Procedures: Surgery Specimen Level IV HEADER OPERATION: Colonoscopy, polypectomy PRE-OP DIAGNOSIS: Positive colorectal cancer screening using Cologuard TISSUE SUBMITTED: Cecum polyp MICROSCOPIC DIAGNOSIS Cecum polyp, polypectomy: A few minute fragments of benign colonic epithelium. Fragments of fecal material. See comment. SJ/mr 05/29/2024 COMMENT The specimen predominantly consists of fecal material. Correlation with clinical, endoscopic findings and appropriate follow up are necessary. MICROSCOPIC DESCRIPTION Slides are reviewed. GROSS DESCRIPTION Received in fixative is one container labeled with the patient's name and designated Cecum polyp. The specimen consists of multiple irregular fragments of poole-pink soft tissue mixed with fecal material that in aggregate measure 2.5 x 1.0 x 0.1 cm. This specimen predominantly consists of fecal material. The specimen is totally submitted in one cassette. / 05/28/2024 TC: Cannot code CPT:58108
--- NOTE | 2024-05-28 08:30 | OP.CCLET_ITS ---
05/28/2024 Deena Barcenas Md Re : Colonoscopy procedure for Bryan Seymour Dear Narinder This procedure was performed on Tuesday, May 28, 2024. My impressions and recommendations are as follows: Impressions : - The entire examined colon is normal on direct and retroflexion views. - One polyp in the cecum, removed with a hot snare. Resected and retrieved. Recommendations : - Discharge patient to home. - Resume previous diet. - Continue present medications. - Await pathology results. - Repeat colonoscopy in 5 years for surveillance based on pathology results. My findings are described in the full procedure note, which is enclosed. If I can be of further assistance, please feel free to contact me at Doctor phone number(s): , Work: . Sincerely, Shayan Krishnamurthy MD 05/28/2024 8:29:45 AM This report has been signed electronically.
--- NOTE | 2024-05-28 08:30 | OP.COLON_ITS ---
Patient Name: Bryan Seymour Procedure Date: 05/28/2024 7:11 AM Date of : 1945 Age: 78 Procedure: Colonoscopy Indications: Positive Cologuard test Providers: Shayan Krishnamurthy MD Referring MD: Deena Barcenas Md Medicines: Propofol per Anesthesia Patient Profile: This is a 78 year old male. Refer to note in patient chart for documentation of history and physical. Last Colonoscopy: 10 years ago. Complications: No immediate complications. Estimated blood loss: Minimal. Procedure: Pre-Anesthesia Assessment: - Prior to the procedure, a History and Physical was performed, and patient medications and allergies were reviewed. The patient's tolerance of previous anesthesia was also reviewed. The risks and benefits of the procedure and the sedation options and risks were discussed with the patient. All questions were answered, and informed consent was obtained. Prior Anticoagulants: The patient has taken no anticoagulant or antiplatelet agents. After reviewing the risks and benefits, the patient was deemed in satisfactory condition to undergo the procedure. After I obtained informed consent, the scope was passed under direct vision. Throughout the procedure, the patient's blood pressure, pulse, and oxygen saturations were monitored continuously. The Colonoscope was introduced through the anus and advanced to the cecum, identified by appendiceal orifice and ileocecal valve. The colonoscopy was performed without difficulty. The patient tolerated the procedure well. The quality of the bowel preparation was adequate to identify polyps. Scope In: 8:07:51 AM Scope Withdrawal Time 0 hours 10 minutes 2 seconds Scope Out: 8:23:46 AM Total Procedure Duration Time 0 hours 15 minutes 55 seconds Findings: The entire examined colon appeared normal on direct and retroflexion views. A polyp was found in the cecum. The polyp was sessile. The polyp was removed with a hot snare. Resection and retrieval were complete. Impression: - The entire examined colon is normal on direct and retroflexion views. - One polyp in the cecum, removed with a hot snare. Resected and retrieved. Recommendation: - Discharge patient to home. - Resume previous diet. - Continue present medications. - Await pathology results. - Repeat colonoscopy in 5 years for surveillance based on pathology results. Procedure Code(s): --- Professional --- 82764, Colonoscopy, flexible; with removal of tumor(s), polyp(s), or other lesion(s) by snare technique Diagnosis Code(s): --- Professional --- D12.0, Benign neoplasm of cecum R19.5, Other fecal abnormalities CPT copyright 2021 [employer]. All rights reserved. The codes documented in this report are preliminary and upon gum maker review may be revised to meet current compliance requirements. Shayan Krishnamurthy MD 05/28/2024 8:29:45 AM This report has been signed electronically. Number of Addenda: 0 Note Initiated On: 05/28/2024 7:11 AM
--- NOTE | 2024-05-28 08:31 | PCM.POST.ANE ---
Anesthesia: Postop Eval I Current Vital Signs Temperature: 96.9 F Pulse Rate: 91 Blood Pressure: 106/75 Respiratory Rate: 18 Pulse Ox: 98 Assessment Airway patent: Yes Spontaneous unlabored respirations: Yes Mental status: Awake and Calm nausea: No Vomiting: No Anesthesia Complication: No Fluid Hydration Crystalloid volume administer (ml): 300 Total IV fluid infused: 300 Progress Note Anesthesia document: Postop Eval 1 completed: Yes
--- NOTE | 2024-05-28 09:35 | POSTOPAN2_ITS ---
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 Spontaneous unlabored Yes 05/28/24 08:32 CADMIUM LIQUOR MAKER.SCHR respirations Mental status Awake,Calm 05/28/24 08:32 CADMIUM LIQUOR [email or web address].SCHR nausea No 05/28/24 08:32 CADMIUM LIQUOR MAKER.SCHR Vomiting No 05/28/24 08:32 CADMIUM LIQUOR MAKER.SCHR Anesthesia Postop Eval I: Fluid Summary Crystalloid volume administer 300 05/28/24 08:32 CADMIUM LIQUOR [email or web address].SCHR (ml) Colloids volume administered ( ml) Blood Product volume administered (ml) Total IV fluid infused 300 05/28/24 08:32 CADMIUM LIQUOR MAKER.SCHR Anesthesia Postop Eval I: Summary Notes Anesthesia Complication No 05/28/24 08:32 CADMIUM LIQUOR MAKER.SCHR Anesthesia Complication Comment: Post-operative progress note Anesthesia: Postop Eval II Evaluation Mental status: Awake and Calm Pain Level: 0 nausea: No Vomiting: No Complications Anesthesia Complication: No
--- NOTE | 2024-05-28 09:35 | PCM.POSTANE2 ---
Anesthesia Postop Eval I Sum Postop Eval Completion status Anesthesia document: Postop Eval 1 completed: Yes Anesthesia Postop Eval I Summary Anesthesia Postop Eval I Summary: Anesthesia Postop Eval I: Assessment Summary Airway patent Yes 05/28/24 08:32 TRASH [email or web address] Spontaneous unlabored Yes 05/28/24 08:32 TRASH [email or web address] respirations Mental status Awake,Calm 05/28/24 08:32 TRASH [email or web address].SCHR nausea No 05/28/24 08:32 TRASH [email or web address].SCHR Vomiting No 05/28/24 08:32 TRASH [email or web address].SCHR Anesthesia Postop Eval I: Fluid Summary Crystalloid volume administer 300 05/28/24 08:32 TRASH [email or web address].SCHR (ml) Colloids volume administered ( ml) Blood Product volume administered (ml) Total IV fluid infused 300 05/28/24 08:32 TRASH [email or web address].SCHR Anesthesia Postop Eval I: Summary Notes Anesthesia Complication No 05/28/24 08:32 TRASH [email or web address].SCHR Anesthesia Complication Comment: Post-operative progress note Anesthesia: Postop Eval II Evaluation Mental status: Awake and Calm Pain Level: 0 nausea: No Vomiting: No Complications Anesthesia Complication: No
[2024-05-28 10:22] LABS: Bedside Glucose 173 mg/dL (74-106)
== END 2024-05-28 09:02 | disposition home or self-care (01) ==
LOC: EN 06:11 → AC 06:12
PROVIDERS: PCP Family Medicine; Referring Provider Family Medicine; Visit Provider Surgery
PROC: 0DJD8ZZ Inspection of Lower Intestinal Tract, Via Natural or Artificial Opening Endoscopic (ICD-10-PCS; CPT 45378; principal; 2024-05-28 07:25)
DX: Z12.11 Encounter for screening for malignant neoplasm of colon (principal); E11.9 Type 2 diabetes mellitus without complications; K63.5 Polyp of colon; I10 Essential (primary) hypertension; Z79.899 Other long term (current) drug therapy; Z79.84 Long term (current) use of oral hypoglycemic drugs
CPT/HCPCS: 45385; 82962; 88305; J7120

== ENCOUNTER → 2024-06-07 | Outpatient (CLI) | payer MEDICARE, SELFPAY ==
[2024-06-07 16:26] LABS: Absolute Lymphocyte Count 1.93 X10^3/uL (0.83-4.51); Absolute Neutrophil Count 3.8 X10^3/uL (2.0-7.7); Basophil# 0.03 X10^3/uL; Basophil% 0.5 % (0-1); Eosinophil# 0.11 X10^3/uL; Eosinophils% 1.7 % (0-5); Hematocrit 43.6 % (40-54); Hemoglobin 14.1 g/dL (13.0-16.5); Lymphocyte # 1.93 X10^3/ul (0.83-4.51); Lymphocyte % 30.3 % (19-41); Mean Corp Hgb Conc 32.3 g/dL (32-36); Mean Corpuscular Hgb 29.2 pg (27.0-32.0); Mean Corpuscular Volume 90.3 fL (80-94); Mean Platelet Vol. 10.9 fl (6.2-12.0); Monocyte# 0.51 X10^3/uL; NRBC Flagged by Analyzer 0 % (0-5); Neutrophil # 3.78 X10^3/uL (2.7-7.7); Neutrophil % 59.2 % (47-70); Platelet Count 233 K/mm3 (150-450); RBC Distribution Width CV 12.6 % (11.6-14.6); RBC Distribution Width SD 41.9 fl (35.1-43.9); Red Blood Count 4.83 M/mm3 (4.6-6.2); White Blood Count 6.4 K/mm3 (4.4-11.0)
[2024-06-07 17:00] LABS: CRP < 2.90 mg/L (0.0-3.0)
[2024-06-07 17:10] LABS: Erythrocyte Sedimentation Rate 21 mm/hr (0-20)
== END | disposition home or self-care (01) ==
LOC: MTLAB 15:52 → LAB 16:07
PROVIDERS: PCP Family Medicine; Referring Provider Ophthalmology; Visit Provider Ophthalmology
DX: H53.121 Transient visual loss, right eye (principal)
CPT/HCPCS: 36415; 85025; 85652; 86140

== ENCOUNTER 2024-11-17 21:56 | Emergency (ER) | payer MEDICARE, SELFPAY ==
[2024-11-17 21:56] VITALS: BP 175/117; PULSE 109; RESP 20; TEMP 36.4; O2SAT 98; BMI 26.6
--- NOTE | 2024-11-17 22:05 | EDS_ITS ---
HPI History of Present Illness Chief Complaint: Flank Pain PFSH PFS Medical History Back pain Wears glasses Cancer Arthritis Diabetes High cholesterol Heartburn Sleep apnea CPAP (continuous positive airway pressure) dependence Non-smoker Hypertension History of stress test History of atrial fibrillation Home Medications ?Medication ?Instructions ?Recorded ?Last Taken ?Type atorvastatin 10 mg tablet 10 mg PO QDAY 04/04/24 05/27/24 History buspirone 15 mg tablet 15 mg PO BID 04/04/24 05/27/24 History gabapentin 100 mg capsule 100 mg PO TID PRN pain 04/04/24 Unknown History glipizide 10 mg tablet 10 mg PO BID 04/04/24 05/27/24 History hydrochlorothiazide 25 mg tablet 25 mg PO QDAY 04/04/24 05/27/24 History losartan 100 mg tablet 100 mg PO QDAY 04/04/24 05/27/24 History meloxicam 15 mg tablet 15 mg PO QDAY 04/04/24 05/27/24 History tamsulosin 0.4 mg capsule 0.4 mg PO QDAY 04/04/24 05/27/24 History hydrocodone-acetaminophen 5-325mg 1 tab PO TID 05/28/24 11/17/24 17:00 History 5mg-325mg aspirin 81 mg capsule 81 mg PO DAILY 11/17/24 Unknown History finasteride 5 mg tablet 5 mg PO DAILY 11/17/24 Unknown History omeprazole 20 mg capsule,delayed 20 mg PO DAILY 11/17/24 Unknown History release ondansetron 4 mg disintegrating 4 mg PO Q8H PRN PRN Nausea #10 tabs 11/18/24 Unknown Rx tablet Allergy/AdvReac Type Severity Reaction Status Date / Time No Known Allergies Allergy Verified 11/17/24 21:56 Surgical History History of colonoscopy History of back surgery Social History Smoking Status: Never smoker alcohol intake: never substance use type: does not use EXAM Physical Exam Const Vital Signs: 11/17/24 21:56 11/18/24 00:00 Temperature 97.5 F L Temperature Source Temporal Pulse Rate 109 H 96 Respiratory Rate 20 H 16 Blood Pressure 175/117 H 153/100 H Blood Pressure Mean 136 117 Pulse Ox 98 96 Oxygen Delivery Method Room Air Room Air [facility] [place] Narrative Medical decision making narrative: HISTORY OF PRESENT ILLNESS: 78-year-old male presents with left flank pain, frequent urination. He further states couple days of left flank pain and burning with urination. Denies fevers or vomiting. Denies history of kidney stones. Denies any family or personal history of connective tissue disorders. Denies any syncope. Denies any numbness tingling or loss of sensation. Denies any hematuria. Denies any change in bowel habits. Denies any falls or other trauma. REVIEW OF SYSTEMS: Pertinent positives: Flank pain, urinary frequency Pertinent negatives: Syncope, fever PHYSICAL EXAM: Nursing triage notes reviewed, Vital signs reviewed Constitutional: please see [facility] HENT: MMM Eyes: Pupils equal round and reactive to light, Extraocular muscles intact Neck: No stridor, no JVD, full neck ROM Lungs: Clear to auscultation, No wheezing or rales. No increased work of breathing, no conversational dyspnea, no accessory muscle use, no nasal flaring. No respiratory distress noted Heart: Regular rate and rhythm, No murmurs, No rubs and No gallops, 2+ distal pulses (radial, femoral, posterior tibial) in all extremities Abdomen: Soft, there is no tenderness, rigidity, rebound or guarding, no obvious peritoneal signs, no palpable pulsatile abdominal masses, no auscultated abdominal bruit : No CVAT Extremities: No edema Neuro: No new focal neurological deficits, cranial nerves II through XII intact, 5/5 strength in all present extremities. Intact sensation to light touch in all present extremities, 2+ reflexes bilateral patella tendons. Skin: No rash or lesions noted MEDICAL DECISION MAKING: Chief Complaint: Flank pain External records reviewed: Reviewed prior imaging studies Factors affecting care: Atrial fibrillation, hypertension, type 2 diabetes Social determinants of health: none History obtained from others: none Consults: none [facility] Narrative: The patient was initially hypertensive with a blood pressure 175/117, tachycardic with a pulse of 109, he is afebrile saturating well on room air. Exam without CVA tenderness. Abdomen soft and benign. The patient was in no acute distress. I considered the following differential diagnosis: UTI, pyelonephritis, nephrol ithiasis, AAA, musculoskeletal injury I obtained a broad lab and imaging workup to further elucidate etiology of the patient's complaints. I initially treated the patient with 4 mg of IV morphine, 4 mg IV Zofran and 15 mg of IV Toradol for symptomatic relief. ALL IMAGES (IF OBTAINED) HAVE BEEN PERSONALLY REVIEWED AND INTERPRETED BY MYSELF. CBC without leukocytosis, severe anemia, no thrombocytopenia. BMP without evidence of significant electrolyte abnormalities, no anion gap, no acute kidney injury. Urinalysis shows no evidence of urinary inflammation suggestive of UTI CT scan of the abdomen pelvis shows no evidence of acute intra-abdominal pathology. Upon reassessment patient's vital signs improved blood pressure was down trending, tachycardia tachypnea resolved. The etiology of his complaint is unclear at this time. The patient is appropriate for discharge home. He was given pain management PCP follow-up. The patient and/or family, caregivers express understanding. The patient and/or family, caregivers agrees with the plan. Shared decision making: I will have a discussion with the patient and or visitors regarding risk/benefits of further testing or admission. They will be made aware of of the risk/benefits inherent in this decision they will be given the opportunity to voice understanding. Total critical care time today provided was at least 0 minutes. This excludes separately billable procedures. Critical care time (if documented) is secondary to the patient having high probability of clinically significant/life threatening deterioration in the patient's condition which required my urgent intervention. Impression: 1. Acute left flank pain 2. Elevated blood pressure Dispo: discharge This note was generated with [employer] dictation software. It may contain incorrect words, spelling, and punctuation that were not noted in review of the chart prior to signing. Lab Data Labs: Laboratory Results - last 24 hr 11/17/24 11/17/24 22:38 22:45 WBC 6.1 RBC 5.49 Hgb 15.9 Hct 48.1 MCV 87.6 MCH 29.0 MCHC 33.1 RDW Std Deviation 41.0 RDW Coeff of Jaci 12.7 Plt Count 242 MPV 10.6 Immature Gran % (Auto) 0.300 Neut % (Auto) 57.9 Lymph % (Auto) 31.1 [place] % (Auto) 8.7 Eos % (Auto) 1.3 Baso % (Auto) 0.7 Absolute Neuts (auto) 3.5 Absolute Lymphs (auto) 1.90 Nucleated RBC % 0 Sodium 135 L Potassium 3.9 Chloride 102 Carbon Dioxide 25.0 Anion Gap 8 BUN 12 Creatinine 0.94 Estim Creat Clear Calc 74.38 Est GFR (MDRD) Af Amer 100 Est GFR (MDRD) Non-Af 82 BUN/Creatinine Ratio 12.7 Glucose 228 H Calcium 9.5 Urine Color Yellow Urine Clarity Clear Urine pH 6.0 Ur Specific Triplett 1.015 Urine Protein 30 H Urine Glucose (UA) 250 H Urine Ketones 5 H Urine Occult Blood 10 H Urine Nitrite Negative Urine Bilirubin Negative Urine Urobilinogen 1 H Ur Leukocyte Esterase Negative Urine RBC 0 SEEN Urine WBC 0 SEEN Ur Squamous Epith Cells 0-5 SEEN Urine Bacteria 0 SEEN Hyaline Casts 0-5 SEEN Urine Mucus RARE Radiography Diagnostic Testing: Clinical Impression(s) from Imaging Studies Abdomen/Pelvis CT 11/17/24 22:15 IMPRESSION: No renal/ureteral stones or hydronephrosis. Age indeterminate mild compression deformity of L1 Mild prostatomegaly. Correlate with PSA levels. Horseshoe kidney. Diverticulosis. Electronically Signed: Dave Calloway MD at 23:41 EST , Discharge Plan Triage Chief Complaint: Flank Pain ED Provider: aVldo Gomez Dx/Rx/DC Orders Instructions: ED Flank Pain, Uncertain Cause Prescriptions: New ondansetron 4 mg tablet,disintegrating 4 mg PO Q8H PRN PRN (Reason: Nausea) Qty: 10 0RF No Action buspirone 15 mg tablet 15 mg PO BID hydrochlorothiazide 25 mg tablet 25 mg PO QDAY tamsulosin 0.4 mg capsule 0.4 mg PO QDAY losartan 100 mg tablet 100 mg PO QDAY glipizide 10 mg tablet 10 mg PO BID atorvastatin 10 mg tablet 10 mg PO QDAY meloxicam 15 mg tablet 15 mg PO QDAY gabapentin 100 mg capsule 100 mg PO TID PRN (Reason: pain) finasteride 5 mg tablet 5 mg PO DAILY aspirin 81 mg capsule 81 mg PO DAILY omeprazole 20 mg capsule,delayed release(DR/EC) 20 mg PO DAILY hydrocodone-acetaminophen 5-325 mg tablet 1 tab PO TID Primary Care Provider: Deena Barcenas Referrals: Deena Barcenas MD [Primary Care Provider] - Activity Restrictions/Additional Instructions: Thank you for trusting us with your care today! The cause of your presentation is unclear. You labs and imaging are negative. Your presentation may be related to your chronic pain condition. Please take Tylenol (2 pills, 650 mg), ibuprofen (2 pills, 400 mg) every 6 hours as needed for pain and fever control. Please take zofran as needed for nausea and vomiting. Please return to the emergency department if your symptoms change or worsen. Please follow with your primary care physician for further outpatient evaluation and management. Print Language: Hungarian Disposition Disposition: Home, Self Care
--- NOTE | 2024-11-17 22:15 | CT_ITS ---
INDICATION: left flank pain EXAMINATION: CT Abdomen And Pelvis W/O Contrast Injection TECHNIQUE: Helically acquired images were obtained of the abdomen and pelvis without the use of IV contrast. A radiation dose optimization technique was used for this scan. Oral contrast: None. COMPARISON: None FINDINGS: Evaluation of the solid organs and vascular structures is limited without intravenous contrast. Visualized lung bases: Unremarkable Liver: Unremarkable Gallbladder: Unremarkable Spleen: Unremarkable Pancreas: Unremarkable Adrenal Glands: Unremarkable Kidneys: Horseshoe kidney. Vasculature: Moderate aortoiliac atherosclerotic disease. GI Tract: Scattered diverticula throughout the colon without evidence of inflammation. Lymphadenopathy: None Peritoneum: No ascites. Bladder: Unremarkable Reproductive organs: The prostate is mildly enlarged. Bones/Soft tissues: There are diffuse degenerative changes of the spine. Age indeterminate mild compression deformity of L1. No retropulsion of fragments. CT/Abdomen/Pelvis without Cont IMPRESSION: No renal/ureteral stones or hydronephrosis. Age indeterminate mild compression deformity of L1 Mild prostatomegaly. Correlate with PSA levels. Horseshoe kidney. Diverticulosis. Electronically Signed: Dave Calloway MD at 23:41 EST ,
[2024-11-17] MEDS: Morphine 4 MG/ML Syringe IV (22:37)
[2024-11-17] MEDS: Ketorolac 15 MG/ML Vial IV (22:38)
[2024-11-17] MEDS: Ondansetron 4 MG/2 ML Vial IV (22:38)
[2024-11-17 22:52] LABS: Bacteria 0 SEEN /hpf (None Seen); Red Blood Cells-Urine 0 SEEN /hpf (0-5); White Blood Cells 0 SEEN /hpf (0-5)
[2024-11-17 22:59] LABS: Absolute Neutrophil Count 3.5 X10^3/uL (2.0-7.7); Basophil# 0.04 X10^3/uL; Basophil% 0.7 % (0-1); Eosinophil# 0.08 X10^3/uL; Eosinophils% 1.3 % (0-5); Hematocrit 48.1 % (40-54); Hemoglobin 15.9 g/dL (13.0-16.5); Lymphocyte % 31.1 % (19-41); Mean Corp Hgb Conc 33.1 g/dL (32-36); Mean Corpuscular Volume 87.6 fL (80-94); Mean Platelet Vol. 10.6 fl (6.2-12.0); Monocyte# 0.53 X10^3/uL; Monocyte% 8.7 % (0-10); NRBC Flagged by Analyzer 0 % (0-5); Neutrophil # 3.54 X10^3/uL (2.7-7.7); Neutrophil % 57.9 % (47-70); Platelet Count 242 K/mm3 (150-450); RBC Distribution Width CV 12.7 % (11.6-14.6); Red Blood Count 5.49 M/mm3 (4.6-6.2); White Blood Count 6.1 K/mm3 (4.4-11.0)
[2024-11-17 23:00] LABS: Color, Urine Yellow (Yellow); Glucose, Dipstick 250 mg/dl (Normal); Ketone-Dipstick 5 mg/dl (Negative); Leukocyte Esterase-Dipstick Negative /ul (Negative); Nitrite-Dipstick Negative (Negative); Occult Blood-Urine 10 /ul (Negative); Protein-Dipstick 30 mg/dl (Negative); Specific Gravity, Urine 1.015 (1.002-1.030); Urine Bilirubin Dipstick Negative (Negative); Urine Clarity Clear (Clear); Urine Urobilinogen 1 mg/dl (Normal)
[2024-11-17 23:14] LABS: Hyaline Cast 0-5 SEEN /lpf (0-5); Mucous, Urine RARE /hpf (<or=2+); Squamous Epithelial Cells - UA 0-5 SEEN /hpf (0-5)
[2024-11-17 23:19] LABS: Anion Gap 8 (5-15); BUN 12 mg/dL (7-18); BUN/Creat Ratio 12.7 RATIO (10-20); Calcium,Total 9.5 mg/dL (8.5-10.1); Chloride 102 mmol/L (98-107); Creatinine, Serum 0.94 mg/dL (0.70-1.30); EST Glomerular Filtration Rate 82 mL/min (>60); Est Glom Filt Rate - Afr Amer 100 mL/min (>60); Estimated Creatinine Clearance 74.38 ml/min; Glucose 228 mg/dL (74-106); Potassium 3.9 mmol/L (3.5-5.1); Sodium Level 135 mmol/L (136-145)
[2024-11-18] VITALS: BP 153/100; PULSE 96; RESP 16; O2SAT 96
[2024-11-18 00:40] VITALS: BP 150/98; PULSE 92; RESP 16; TEMP 36.7; O2SAT 98
== END 2024-11-18 00:41 | disposition home or self-care (01) ==
PROVIDERS: Emergency Provider Emergency Medicine; PCP Family Medicine; Referring Provider Emergency Medicine; Visit Provider Emergency Medicine
DX: R10.9 Unspecified abdominal pain (principal); I48.91 Unspecified atrial fibrillation; E11.9 Type 2 diabetes mellitus without complications; E78.00 Pure hypercholesterolemia, unspecified; R03.0 Elevated blood-pressure reading, without diagnosis of hypertension; Z99.89 Dependence on other enabling machines and devices; G47.30 Sleep apnea, unspecified; Q63.1 Lobulated, fused and horseshoe kidney; K57.30 Diverticulosis of large intestine without perforation or abscess without bleeding

== ENCOUNTER 2024-12-06 10:49 | Outpatient (RCR) | payer MEDICARE, SELFPAY | END 2024-12-06 19:00 | disposition home or self-care (01) | LOC: PT 10:49 | PROVIDERS: PCP Family Medicine; Referring Provider Anesthesiology Pain Medicine; Visit Provider Anesthesiology Pain Medicine | DX: M54.9 Dorsalgia, unspecified (principal) ==

== ENCOUNTER → 2024-12-18 | Outpatient (CLI) | payer MEDICARE, SELFPAY ==
--- NOTE | 2024-12-18 16:13 | MRI_ITS ---
PROCEDURE: SPINE LUMBAR (ROUTINE) REASON FOR EXAM: [age]-year-old male, compression fracture status post fall 2 weeks ago, increasing left-sided back pain. TECHNIQUE: Noncontrast lumbar spine MRI. COMPARISON: Lumbar radiographs 12/17/2024. FINDINGS: Mild leftward curvature of the lumbar spine. Vertebrae: Acute, moderate compression fracture deformity of the inferior L1 vertebral body endplate resulting in at least 50% vertebral body height loss. Mild acute compression fracture deformities of the inferior L2 and superior L3, and inferior L3 and superior L4 vertebral bodies. Alignment: Normal. No spondylolisthesis. Conus Medullaris: Normally positioned, terminating at the L1 vertebral body. L1-2: Acute, moderate compression fracture deformity of the inferior L1 vertebral body endplate resulting in 50% vertebral body height loss. There is severe intervertebral herniation superiorly into the inferior L1 vertebral body, and mild symmetric posterior disc herniation. This results in mild central and bilateral neural foraminal stenosis. L2-3: Acute, mild compression fracture deformity of the L2-3 space. Severe degenerative disc disease with posterior disc osteophytes and ligamentum flavum thickening results in moderate central stenosis, and severe right and moderate left neural foraminal stenosis. L3-4: Acute, mild compression fracture deformity of the L3-4 space. Severe degenerative disc disease with diffuse disc bulging, slightly asymmetric to the right, results in severe central, and severe right and moderate left neural foraminal stenosis. Additionally, there is disc material along the anterior L3-4 intervertebral space. L4-5: Degenerative disc disease with ligamentum flavum thickening resulting in moderate central and neural foraminal stenosis. L5-S1: Unremarkable Sacrum: Visualized upper sacrum and SI joints are unremarkable. Visualized abdominal structures: Horseshoe kidney with bilateral renal cysts. MRI/Spine Lumbar (Routine) IMPRESSION: 1. Acute moderate compression fracture deformity of the inferior L1 vertebral b anjum endplate resulting in at least 50% vertebral body height loss. Additional mild acute compression fracture deformities as de scribed. 2. Severe central stenosis at L3-4, and severe right and moderate left neural f oraminal stenosis at L2-3 and L3-4. Additional areas of central and neural foraminal stenosis as described. Reading Location: [id number]
== END | disposition home or self-care (01) ==
LOC: MRI 16:01
PROVIDERS: PCP Family Medicine; Referring Provider Orthopaedic Surgery Orthopaedic Surgery of the Spine; Visit Provider Orthopaedic Surgery Orthopaedic Surgery of the Spine
DX: S32.010A Wedge compression fracture of first lumbar vertebra, initial encounter for closed fracture (principal)
CPT/HCPCS: 72148

== ENCOUNTER → 2024-12-23 | Outpatient (CLI) | payer MEDICARE, SELFPAY ==
[2024-12-23 13:55] LABS: Hemoglobin A1c 8.8 % (3.8-5.6)
[2024-12-23 17:55] LABS: Microalbumin,Random Urine 32.2 mg/L (NO RANGE EST.)
== END | disposition home or self-care (01) ==
PROVIDERS: PCP Family Medicine; Referring Provider Family Medicine; Visit Provider Family Medicine
DX: E11.40 Type 2 diabetes mellitus with diabetic neuropathy, unspecified (principal)
CPT/HCPCS: 36415; 82043; 82570; 83036

== ENCOUNTER → 2025-01-20 | Outpatient (CLI) | payer MEDICARE, SELFPAY ==
[2025-01-20 15:09] LABS: Anion Gap 14 (5-15); BUN 9 mg/dL (4-19); BUN/Creat Ratio 10.6 RATIO (10-20); Calcium,Total 9.8 mg/dL (7.6-11.0); Carbon Dioxide 26.4 mmol/L (21.0-32.0); Chloride 97 mmol/L (98-108); Creatinine, Serum 0.84 mg/dL (0.70-1.20); EST Glomerular Filtration Rate 89 (>60); Glucose 175 mg/dL (70-99); Potassium 3.6 mmol/L (3.3-5.1); Sodium Level 137 mmol/L (133-145)
== END | disposition home or self-care (01) ==
LOC: LAB 13:34
PROVIDERS: PCP Family Medicine; Referring Provider Family Medicine; Visit Provider Family Medicine
DX: Z51.81 Encounter for therapeutic drug level monitoring (principal)
CPT/HCPCS: 36415; 80048

== ENCOUNTER → 2025-04-14 | Outpatient (CLI) | payer MEDICARE, SELFPAY ==
[2025-04-14 10:58] LABS: Anion Gap 13 (5-15); BUN 13 mg/dL (4-19); BUN/Creat Ratio 14.3 RATIO (10-20); Calcium,Total 10.1 mg/dL (7.6-11.0); Carbon Dioxide 25.7 mmol/L (21.0-32.0); Chloride 101 mmol/L (98-108); EST Glomerular Filtration Rate 88 (>60); Glucose 155 mg/dL (70-99); Potassium 4.8 mmol/L (3.3-5.1); Sodium Level 139 mmol/L (133-145)
[2025-04-14 11:38] LABS: Hemoglobin A1c 8.1 % (<=5.6)
== END | disposition home or self-care (01) ==
PROVIDERS: PCP Family Medicine; Referring Provider Family Medicine; Visit Provider Family Medicine
DX: E11.40 Type 2 diabetes mellitus with diabetic neuropathy, unspecified (principal); Z51.81 Encounter for therapeutic drug level monitoring
CPT/HCPCS: 36415; 80048; 83036

== ENCOUNTER → 2025-06-03 | Outpatient (CLI) | payer MEDICARE, SELFPAY ==
--- NOTE | 2025-06-03 13:53 | BD_ITS ---
PROCEDURE: DEXA BONE DENSITY STUDY 06/03/2025 REASON FOR EXAM: COMPRESSION FRACTURE M, age 79 y/o . Compression fracture.. TECHNIQUE: DEXA BONE DENSITY STUDY COMPARISON: None FINDINGS: BMD and T-SCORES Lumbar spine: 1.008 g/cm2, T-score -0.4 Levels: L1 through L4 Left femoral neck: 0.723 g/cm2, T-score -1.5 Femoral neck comparison data not recommended for monitoring change. Left total hip: 0.780 g/cm2, T-score -1.7 Right femoral neck: 0.593 g/cm2, T-score -2.5 Femoral neck comparison data not recommended for monitoring change. Right total hip: 0.776 g/cm2, T-score -1.6 The World Health Organization has defined the following categories based on bone density: Normal bone density: T-score equal to or greater than -1.0 Osteopenia: T-score between -1.0 and -2.5 Osteoporosis: T-score equal to or less than -2.5 The patient does meet the pharmacological treatment recommendations for prevention of osteoporosis. BD/Dexa Bone Density Study IMPRESSION: OSTEOPENIA. Recommend follow-up as clinically warranted. Reading Location: [facility]
== END | disposition home or self-care (01) ==
LOC: OPBD 13:39
PROVIDERS: PCP Family Medicine; Referring Provider Orthopaedic Surgery Orthopaedic Surgery of the Spine; Visit Provider Orthopaedic Surgery Orthopaedic Surgery of the Spine
DX: S32.010A Wedge compression fracture of first lumbar vertebra, initial encounter for closed fracture (principal)
CPT/HCPCS: 77080

== ENCOUNTER 2025-06-06 15:01 | Emergency (ER) | payer MEDICARE, SELFPAY ==
[2025-06-06 15:03] VITALS: BP 150/96; PULSE 117; RESP 17; TEMP 36.6; O2SAT 99; BMI 26.3
[2025-06-06 15:22] VITALS: BP 115/85; BP 120/89; BP 161/108; PULSE 127; PULSE 95
--- NOTE | 2025-06-06 15:22 | EKG12_ITS ---
Test Reason : cold sweat x1 week Blood Pressure : */* mmHG Vent. Rate : 99 BPM Atrial Rate : 99 BPM P-R Int : 126 ms QRS Dur : 86 ms QT Int : 362 ms P-R-T Axes : 41 32 66 degrees QTcB Int : 464 ms Sinus rhythm with marked sinus arrhythmia Otherwise normal ECG Confirmed by VICTORINO VINES, LAURENCE ([id number]), brands editor AURORA MARIE ([id number]) on 06/09/2025 6:59:12 AM Referred By: Confirmed By: LAURENCE GLEASON MD
--- NOTE | 2025-06-06 15:23 | EDS_ITS ---
HPI History of Present Illness Chief Complaint: General Illness Detail of Chief Complaint: Cold sweats Informant: patient and spouse/S.O. Narrative Narrative: Patient presents to the emergency department complaint of cold sweats that have been ongoing for about a week. Patient states that he has had about 3 episodes of this. First time it happened was at night where he woke up and his bed sheets were wet and he was sweaty. Loving somewhat lightheaded with that. He denied any chest pain or palpitations or racing heart with that. Symptoms were then resolved. He had another episode today while he was at the store where he just broke out into a cold sweat and his lips seemed somewhat michelle felt like he might pass out but did not pass out. Patient states he has no heart history. No prior stents. No recent illness although he states has been urinating a little more than usual. He denies dysuria. He has history of chronic back pain but no pain out of the ordinary. He denies any sick contacts. [facility] Medical History Back pain Wears glasses Cancer Arthritis Diabetes High cholesterol Heartburn Sleep apnea CPAP (continuous positive airway pressure) dependence Non-smoker Hypertension History of stress test History of atrial fibrillation Home Medications ?Medication ?Instructions ?Recorded ?Last Taken ?Type atorvastatin 10 mg tablet 10 mg PO QDAY 04/04/2405/27 History buspirone 15 mg tablet 15 mg PO BID 04/04/24 History gabapentin 100 mg capsule 100 mg PO TID PRN pain 04/04 Unknown History glipizide 10 mg tablet 10 mg PO BID 04/04/24 History hydrochlorothiazide 25 mg tablet 25 mg PO QDAY 4 05/27/24 History losartan 100 mg tablet 100 mg PO QDAY 04/04/2405/07 History meloxicam 15 mg tablet 15 mg PO QDAY 04/04/2405/27 History tamsulosin 0.4 mg capsule 0.4 mg PO QDAY 04/04/2405/07 History aspirin 81 mg capsule 81 mg PO DAILY 11/17/24 Unkn own History finasteride 5 mg tablet 5 mg PO DAILY 11/17/24 Unkno wn History omeprazole 20 mg capsule,delayed 20 mg PO DAILY Unknown History release metoprolol succinate 25 mg 25 mg PO QDAY 12/17/24 Unkn own History tablet,extended release 24 hr tramadol 50 mg tablet 50 mg PO BID 02/07/25 Unknow n History Allergy/AdvReac Type Severity Reaction Status Date / Time No Known Allergies Allergy Verified 06/06/25 15:05 Surgical History History of colonoscopy History of back surgery Social History (Updated 06/06/25 @ 15:45 by Esthela Vidal) household members: spouse housing: house Smoking Status: Never smoker alcohol intake: never substance use type: does not use ROS ROS ED Review of Systems ROS Unobtainable: other Constitutional Constitutional ED: Reports lethargy and sweats; Denies chills, fever(s) or weight loss Eyes Eyes: Denies blurry vision, change in vision or diplopia ENT ENT ED: Denies rhinorrhea or sore throat Cardiovascular Cardiovascular: Denies chest pain, orthopnea or racing heartbeat Respiratory/Chest Respiratory/Chest: Reports dyspnea and dyspnea on exertion; Denies cough, orthopnea or sputum Gastrointestinal Gastrointestinal: Denies abdominal pain, diarrhea, nausea or vomiting Genitourinary Genitourinary ED: Denies dysuria, hematuria or urinary frequency Musculoskeletal Musculoskeletal: Denies arthralgias, back pain, myalgias or neck pain Integumentary Denies abscess, Abrasions or rash Neurologic Neurologic: Reports other Details: Lightheadedness ; Denies headache(s) or weakness Psychiatric Psychiatric: Denies anxiety, depression or suicidal thoughts Endocrine Endocrinology: Denies polydipsia, polyphagia or polyuria Hematologic/Lymphatic Hematologic/Lymphatic: Denies easy bleeding, easy bruising or lymphadenopathy Allergic/Immunologic Allergic/Immunologic ED: Denies mouth swelling, tongue swelling or urticaria EXAM Physical Exam Const Vital Signs:
--- NOTE | 2025-06-06 15:23 | EX.ED.DYSGE1 ---
HPI History of Present Illness Chief Complaint: General Illness Detail of Chief Complaint: Cold sweats Informant: patient and spouse/S.O. Narrative Narrative: Patient presents to the emergency department complaint of cold sweats that have been ongoing for about a week. Patient states that he has had about 3 episodes of this. First time it happened was at night where he woke up and his bed sheets were wet and he was sweaty. [place] somewhat lightheaded with that. He denied any chest pain or palpitations or racing heart with that. Symptoms were then resolved. He had another episode today while he was at the store where he just broke out into a cold sweat and his lips seemed somewhat michelle felt like he might pass out but did not pass out. Patient states he has no heart history. No prior stents. No recent illness although he states has been urinating a little more than usual. He denies dysuria. He has history of chronic back pain but no pain out of the ordinary. He denies any sick contacts. [facility] Medical History Back pain Wears glasses Cancer Arthritis Diabetes High cholesterol Heartburn Sleep apnea CPAP (continuous positive airway pressure) dependence Non-smoker Hypertension History of stress test History of atrial fibrillation Home Medications ?Medication ?Instructions ?Recorded ?Last Taken ?Type atorvastatin 10 mg tablet 10 mg PO QDAY 04/04/24 05/27/24 History buspirone 15 mg tablet 15 mg PO BID 04/04/24 05/27/24 History gabapentin 100 mg capsule 100 mg PO TID PRN pain 04/04/24 Unknown History glipizide 10 mg tablet 10 mg PO BID 04/04/24 05/27/24 History hydrochlorothiazide 25 mg tablet 25 mg PO QDAY 04/04/24 05/27/24 History losartan 100 mg tablet 100 mg PO QDAY 04/04/24 05/27/24 History meloxicam 15 mg tablet 15 mg PO QDAY 04/04/24 05/27/24 History tamsulosin 0.4 mg capsule 0.4 mg PO QDAY 04/04/24 05/27/24 History aspirin 81 mg capsule 81 mg PO DAILY 11/17/24 Unknown History finasteride 5 mg tablet 5 mg PO DAILY 11/17/24 Unknown History omeprazole 20 mg capsule,delayed 20 mg PO DAILY 11/17/24 Unknown History release metoprolol succinate 25 mg 25 mg PO QDAY 12/17/24 Unknown History tablet,extended release 24 hr tramadol 50 mg tablet 50 mg PO BID 02/07/25 Unknown History Allergy/AdvReac Type Severity Reaction Status Date / Time No Known Allergies Allergy Verified 06/06/25 15:05 Surgical History History of colonoscopy History of back surgery Social History (Updated 06/06/25 @ 15:45 by Esthela Vidal) household members: spouse housing: house Smoking Status: Never smoker alcohol intake: never substance use type: does not use ROS ROS ED Review of Systems ROS Unobtainable: other Constitutional Constitutional ED: Reports lethargy and sweats; Denies chills, fever(s) or weight loss Eyes Eyes: Denies blurry vision, change in vision or diplopia ENT ENT ED: Denies rhinorrhea or sore throat Cardiovascular Cardiovascular: Denies chest pain, orthopnea or racing heartbeat Respiratory/Chest Respiratory/Chest: Reports dyspnea and dyspnea on exertion; Denies cough, orthopnea or sputum Gastrointestinal Gastrointestinal: Denies abdominal pain, diarrhea, nausea or vomiting Genitourinary Genitourinary ED: Denies dysuria, hematuria or urinary frequency Musculoskeletal Musculoskeletal: Denies arthralgias, back pain, myalgias or neck pain Integumentary Denies abscess, Abrasions or rash Neurologic Neurologic: Reports other Details: Lightheadedness ; Denies headache(s) or weakness Psychiatric Psychiatric: Denies anxiety, depression or suicidal thoughts Endocrine Endocrinology: Denies polydipsia, polyphagia or polyuria Hematologic/Lymphatic Hematologic/Lymphatic: Denies easy bleeding, easy bruising or lymphadenopathy Allergic/Immunologic Allergic/Immunologic ED: Denies mouth swelling, tongue swelling or urticaria EXAM Physical Exam Const Vital Signs: 06/06/25 15:03 06/06/25 15:22 06/06/25 15:44 Temperature 97.9 F Temperature Source Oral Pulse Rate 117 H Pulse Rate [Lying] 95 Pulse Rate [Sitting (for 1 minute prior to obtaining)] 127 H Respiratory Rate 17 Respiratory Effort Normal Non-Labored Blood Pressure 150/96 H Blood Pressure [Lying] 115/85 H Blood Pressure [Sitting (for 1 minute prior to obtaining)] 161/108 H Blood Pressure [Standing (for 1 minute prior to obtaining)] 120/89 H Blood Pressure Mean 114 Blood Pressure Mean [Lying] 95 Blood Pressure Mean [Sitting (for 1 minute prior to obtaining)] 125 Blood Pressure Mean [Standing (for 1 minute prior to obtaining)] 99 Pulse Ox 99 Oxygen Delivery Method Room Air 06/06/25 17:02 06/06/25 17:02 Temperature Temperature Source Pulse Rate 120 H 78 Pulse Rate [Lying] Pulse Rate [Sitting (for 1 minute prior to obtaining)] Respiratory Rate 17 18 Respiratory Effort Blood Pressure 137/100 H 161/108 H Blood Pressure [Lying] Blood Pressure [Sitting (for 1 minute prior to obtaining)] Blood Pressure [Standing (for 1 minute prior to obtaining)] Blood Pressure Mean 112 125 Blood Pressure Mean [Lying] Blood Pressure Mean [Sitting (for 1 minute prior to obtaining)] Blood Pressure Mean [Standing (for 1 minute prior to obtaining)] Pulse Ox 99 98 Oxygen Delivery Method Room Air Positive well nourished and well developed General Appearance ED: well developed and NAD HEENT Reports TM's clear and moist mucous membranes normocephalic and atraumatic; Negative for trauma or tenderness Tympanic Membrane ED: Yes TM's clear Eyes PERRL and EOMs intact bilaterally General Eye ED: Negative for pale conjunctiva or scleral icterus Neck no lymphadenopathy, supple and no JVD General: Negative for tenderness Chest Wall inspection of chest normal and palpation of chest normal Chest: Negative for tenderness Resp normal respiratory effort and clear to auscultation bilaterally Effort and Inspection: Negative for respiratory distress or pain with movement Auscultation: Negative for rhonchi, wheezes or diminished lung sounds Cardio regular rhythm, S1 normal heart sound, S2 normal heart sound and no murmurs; Negative for regular rate Rate: tachycardic Peripheral Pulses: pulses 2+ throughout GI normal to inspection, nondistended, normoactive bowel sounds, soft to palpation, non-tender, non-distended and no masses Back/Spine no CVA tenderness and no thoracic nor lumbar tenderness Extremity normal to inspection General Extremety ED: Negative for edema General Extremity: Negative for edema Neuro oriented x3, CN's II-XII intact bilaterally, no sensory deficits noted and gait normal Sensorium / Orientation: awake, alert, oriented to person, oriented to place and oriented to time Motor Exam: strength 5/5 throughout and strength abnormal Psych mental status grossly normal Skin no rashes or lesions noted and no wounds MDM MDM MDM Narrative Medical decision making narrative: Patient presents with a complaint of diaphoresis and lightheadedness with about 3-4 episodes in the last week. Today happened while standing. Has also had episodes after waking up and standing up from bed but then noted that his bed sheets were soaked. Denies chest pain or racing heart. Denies recent illness. He has not had episodes like this before. IV line established. EKG obtained showed sinus rhythm with ventricular rate of 99 bpm with occasional PACs. CBC with differential shows a white count of 12.6 with hemoglobin 16 and platelet count of 310. Chemistries unremarkable. Troponin normal at 7. Urinalysis without signs of infection. TSH normal at 1.070. Orthostatic vital signs performed initially from laying flat to sitting his blood pressure went up and then when he stood up it dropped but he was asymptomatic. Did have a mild tachycardia. Suspect possibility of volume depletion therefore he was given a liter [place] fluid bolus. At this point I do not suspect an acute coronary syndrome. Dysrhythmia would be in the differential but he is not expressed this complaint. This point recommended pushing fluids and follow-up with primary care physician as they have an appointment within a week and a half. Advised to return if chest pain, shortness of breath, palpitations, tachycardia, or condition should worsen anyway. Lab Data Attestation: I reviewed the patient's lab results. Labs: Laboratory Results - last 24 hr 06/06/25 06/06/25 15:47 17:28 WBC 12.6 H RBC 5.49 Hgb 16.1 Hct 49.5 MCV 90.2 MCH 29.3 MCHC 32.5 RDW Std Deviation 43.6 RDW Coeff of Jaci 13.2 Plt Count 310 MPV 11.0 Immature Gran % (Auto) 0.600 Neut % (Auto) 78.0 H Lymph % (Auto) 13.5 L [place] % (Auto) 7.0 Eos % (Auto) 0.3 Baso % (Auto) 0.6 Absolute Neuts (auto) 9.8 H Absolute Lymphs (auto) 1.71 Nucleated RBC % 0 Sodium 137 Potassium 3.8 Chloride 99 Carbon Dioxide 22.6 Anion Gap 15 BUN 21 H Creatinine 1.11 Estim Creat Clear Calc 61.98 Est GFR (MDRD) Non-Af 68 BUN/Creatinine Ratio 18.6 Glucose 120 H Calcium 9.9 Total Bilirubin 0.56 AST 21 ALT 15 Alkaline Phosphatase 114 Troponin T High Sens 9 Troponin T Hi Sens 2 Hr 7 Total Protein 8.1 Albumin 4.5 Globulin 3.6 Albumin/Globulin Ratio 1.3 TSH 1.070 Urine Color Yellow Urine Clarity Clear Urine pH 6.5 Ur Specific [place] 1.010 Urine Protein Negative Urine Glucose (UA) Normal Urine Ketones Negative Urine Occult Blood Negative Urine Nitrite Negative Urine Bilirubin Negative Urine Urobilinogen Normal Ur Leukocyte Esterase Negative Urine RBC 0 SEEN Urine WBC 0 SEEN Ur Squamous Epith Cells 0 SEEN Urine Bacteria 0 SEEN Urine Mucus 0 SEEN EKG Initial EKG: Attestation: I personally reviewed and interpreted this EKG as follows: Comments: Sinus rhythm with rate of 99 bpm with occasional PACs Discharge Plan Triage Chief Complaint: General Illness ED Provider: Alan Singleton Dx/Rx/DC Orders Clinical Impression: Near syncope Instructions: ED Near-Fainting, Uncertain Cause Prescriptions: No Action buspirone 15 mg tablet 15 mg PO BID hydrochlorothiazide 25 mg tablet 25 mg PO QDAY tamsulosin 0.4 mg capsule 0.4 mg PO QDAY losartan 100 mg tablet 100 mg PO QDAY glipizide 10 mg tablet 10 mg PO BID atorvastatin 10 mg tablet 10 mg PO QDAY meloxicam 15 mg tablet 15 mg PO QDAY gabapentin 100 mg capsule 100 mg PO TID PRN (Reason: pain) metoprolol succinate 25 mg tablet extended release 24 hr 25 mg PO QDAY tramadol 50 mg tablet 50 mg PO BID finasteride 5 mg tablet 5 mg PO DAILY aspirin 81 mg capsule 81 mg PO DAILY omeprazole 20 mg capsule,delayed release(DR/EC) 20 mg PO DAILY Primary Care Provider: Deena Barcenas Referrals: Deena Barcenas MD [Primary Care Provider] - 1 Week Print Language: Turkish Disposition Disposition: Home, Self Care
[2025-06-06] MEDS: 0.9% Normal Saline (1000mL) 1,000 ML 1000 ML IV (15:46)
[2025-06-06 16:02] LABS: Mucous, Urine 0 SEEN /hpf (<or=2+); Red Blood Cells-Urine 0 SEEN /hpf (0-5); Squamous Epithelial Cells - UA 0 SEEN /hpf (0-5)
[2025-06-06 16:04] LABS: Color, Urine Yellow (Yellow); Glucose, Dipstick Normal (Normal); Ketone-Dipstick Negative (Negative); Leukocyte Esterase-Dipstick Negative /ul (Negative); Nitrite-Dipstick Negative (Negative); Occult Blood-Urine Negative /ul (Negative); Protein-Dipstick Negative (Negative); Specific Gravity, Urine 1.010 (1.002-1.030); Urine Bilirubin Dipstick Negative (Negative)
[2025-06-06 16:18] LABS: Hematocrit 49.5 % (40-54); Hemoglobin 16.1 g/dL (13.0-16.5); Immature Granulocytes Count 0.080 X10^3/uL (0.0-0.0); Mean Corp Hgb Conc 32.5 g/dL (32-36); Mean Corpuscular Volume 90.2 fL (80-94); Mean Platelet Vol. 11.0 fl (6.2-12.0); NRBC Flagged by Analyzer 0 % (0-5); Platelet Count 310 K/mm3 (150-450); RBC Distribution Width CV 13.2 % (11.6-14.6); RBC Distribution Width SD 43.6 fl (35.1-43.9); Red Blood Count 5.49 M/mm3 (4.6-6.2); White Blood Count 12.6 K/mm3 (4.4-11.0)
[2025-06-06 16:34] LABS: AST(SGOT) 21 U/L (<=37); Alanine Aminotransfer ALT/SGPT 15 U/L (<=46); Albumin, Serum 4.5 g/dL (3.4-4.8); Alkaline Phosphatase 114 U/L (40-129); Anion Gap 15 (5-15); BUN 21 mg/dL (4-19); BUN/Creat Ratio 18.6 RATIO (10-20); Calcium,Total 9.9 mg/dL (7.6-11.0); Carbon Dioxide 22.6 mmol/L (21.0-32.0); Chloride 99 mmol/L (98-108); Estimated Creatinine Clearance 61.98 ml/min (50-250); Globulin 3.6 g/dL (2.2-4.2); Glucose 120 mg/dL (70-99); Potassium 3.8 mmol/L (3.3-5.1)
[2025-06-06 17:02] VITALS: BP 137/100; BP 161/108; PULSE 120; PULSE 78; RESP 17; RESP 18; O2SAT 98; O2SAT 99
[2025-06-06 17:22] LABS: Troponin T High Sensitivity 9 ng/L (<=22)
[2025-06-06] MEDS: 0.9% Normal Saline (1000mL) 1,000 ML 150 ML IV (17:31)
[2025-06-06] MEDS: 0.9% Normal Saline (1000mL) 1,000 ML 999 ML IV (17:31)
[2025-06-06 18:00] LABS: Troponin T High Sens 2 HR 7 ng/L (<=22)
[2025-06-06 18:24] VITALS: BP 152/104; PULSE 95; RESP 18; TEMP 36.6; O2SAT 98
== END 2025-06-06 18:26 | disposition home or self-care (01) ==
PROVIDERS: Emergency Provider Emergency Medicine; PCP Family Medicine; Visit Provider Emergency Medicine
DX: R55 Syncope and collapse (principal); E11.9 Type 2 diabetes mellitus without complications; E78.00 Pure hypercholesterolemia, unspecified; R42 Dizziness and giddiness; R06.09 Other forms of dyspnea; Z99.89 Dependence on other enabling machines and devices; I10 Essential (primary) hypertension; G47.30 Sleep apnea, unspecified
CPT/HCPCS: 80053; 81001; 84443; 84484; 85025; 93005; 96360; 96361; 99284; A4216

== ENCOUNTER → 2025-07-21 | Outpatient (CLI) | payer MEDICARE, SELFPAY ==
[2025-07-21 13:10] LABS: Hematocrit 42.2 % (40-54); Hemoglobin 14.0 g/dL (13.0-16.5); Immature Granulocytes Count 0.040 X10^3/uL (0.0-0.0); Mean Corp Hgb Conc 33.2 g/dL (32-36); Mean Corpuscular Volume 88.5 fL (80-94); Mean Platelet Vol. 10.7 fl (6.2-12.0); NRBC Flagged by Analyzer 0 % (0-5); Platelet Count 279 K/mm3 (150-450); RBC Distribution Width CV 12.3 % (11.6-14.6); RBC Distribution Width SD 40.2 fl (35.1-43.9); Red Blood Count 4.77 M/mm3 (4.6-6.2); White Blood Count 7.6 K/mm3 (4.4-11.0)
[2025-07-21 13:59] LABS: Cholesterol 159 mg/dL (<=200); Low Density Lipoprotein Calc. 54 mg/dL; Triglycerides 298 mg/dL; Very Low Density Lipoprotein 60 mg/dL (5-40); cholesterol:hdl ratio screen 3.49
== END | disposition home or self-care (01) ==
LOC: LAB 12:07
PROVIDERS: PCP Family Medicine; Referring Provider Family Medicine; Visit Provider Family Medicine
DX: Z51.81 Encounter for therapeutic drug level monitoring (principal); E11.40 Type 2 diabetes mellitus with diabetic neuropathy, unspecified; E78.5 Hyperlipidemia, unspecified
CPT/HCPCS: 36415; 80061; 83036; 85025

== ENCOUNTER → 2025-10-08 | Outpatient (CLI) | payer MEDICARE, SELFPAY ==
[2025-10-08 13:48] LABS: Vitamin B12 408 pg/mL (180-914)
== END | disposition home or self-care (01) ==
PROVIDERS: PCP Family Medicine; Referring Provider Psychiatry & Neurology Neurology; Visit Provider Psychiatry & Neurology Neurology
DX: R41.3 Other amnesia (principal)
CPT/HCPCS: 36415; 81401; 82607

== ENCOUNTER → 2025-10-21 | Outpatient (CLI) | payer MEDICARE, SELFPAY ==
--- NOTE | 2025-10-21 15:25 | MRI_ITS ---
PROCEDURE: BRAIN WITHOUT CONTRAST 10/21/2025 REASON FOR EXAM: Clinical history of memory defect TECHNIQUE: Procedure Code: MRIBR Modality: MR Procedure: BRAIN WITHOUT CONTRAST Multiplanar and multisequence images were obtained. COMPARISON: None available FINDINGS: No acute infarct or hemorrhage. Nonspecific foci and partially confluent areas of T2/FLAIR white matter hyperintensities in the cerebral hemispheres likely reflect chronic microvascular ischemic changes. No extra-axial fluid collection. No significant mass effect or herniation of the brain. Global cerebral volume loss. No hydrocephalus. The basal cisterns are patent. The intracranial large vessel arterial flow voids are maintained. The mastoid air cells clear. The paranasal sinuses are predominately clear. The orbits are unremarkable. There is a focal T1/T2 hypointense lesion in the clivus with associated magnetic susceptibility. The calvarial bone marrow signal is otherwise within normal limits. MRI/Brain without Contrast IMPRESSION: 1. No acute infarct, hemorrhage, or significant mass effect. 2. Global cerebral volume loss and moderate chronic microischemic changes. 3. Incompletely characterized focal T1/T2 hypointense lesion in the clivus with associated magnetic susceptibility. Differential includes a bone island. Reading Location: [id number]
== END | disposition home or self-care (01) ==
LOC: MRI 15:17
PROVIDERS: PCP Family Medicine; Referring Provider Psychiatry & Neurology Neurology; Visit Provider Psychiatry & Neurology Neurology
DX: R41.3 Other amnesia (principal)
CPT/HCPCS: 70551